=== PATIENT | male | born 1960 | race Caucasian/White ===

== ENCOUNTER 2019-02-02 21:12 | Inpatient (IN) | payer OTHER ==
[~2019-02-02] VITALS: Ht 177.8 cm; Wt 60.3 kg
[2019-02-02 21:12] VITALS: BP 120/67
--- NOTE | 2019-02-02 21:12 | NUR ---
PT LAUREEN GARRISON TO ER BED 2
--- NOTE | 2019-02-02 21:12 | NUR ---
PATIENT BIB EMS TO ER BED 2.
--- NOTE | 2019-02-02 21:20 | NUR ---
58 YO M BIBA-ALS FROM [facility] FOR ABNORMAL LABS (WBC: 18.1). NO OTHER CHEIF COMPLAINTS REPORTED. PT ARRIVED VIA GURNEY WITH TRACH. MANUAL VENTILATION VIA BVM IN PROGRESS. PT TRANSPORTED TO BED WITH RT AT BEDSIDE. PT CONNECTED TO VENTILATOR. PT IS AWAKE, RESPONDS TO NAME, NON-VERBAL, NON-AMBULATORY. BEAN CATHETER IN PLACE, DRAINING YELLOW, CLOUDY URINE. G-TUBE NOTED. PT HAS STAGE 4 PRESSURE WOUND TO COCCYX. -- SKIN PINK, DRY, WARM. BREATHING EVEN, UNLABORED. BILATERAL RONCHI AND RALES AUSCULTATED. -- VSS. NO DISTRESS NOTED AT THIS TIME. PMH-- ADVANCED ALS, VENT/G-TUBE DEPENDENT, CHRONIC RESPIRATORY FAILURE, DM, HTN, GERD
--- NOTE | 2019-02-02 21:25 | NUR ---
# 18 FR Eaton catheter with 10 ml utilizing sterile technique. Immediate return of 15 ml cloudy, yellow urine noted. Bedside drainage bag placed below level of bladder. Urine sample collected and sent to lab. Pt tolerated procedure well.
--- NOTE | 2019-02-02 21:30 | NUR ---
SP02 DROPPING TO 92%. TRACHEAL SUCTION PERFORMED. LARGE, YELLOW, SEMI THICK SECRETIONS NOTED. SP02 INCREASED TO 97%.
[2019-02-02] MEDS ORDERED: CHLO1SOL3 MM (21:42)
[2019-02-02] MEDS ORDERED: BACL10TA4 GT (21:42)
[2019-02-02] MEDS ORDERED: [UNRECOGNIZED DRUG - CODE] SQ (21:42)
[2019-02-02] MEDS ORDERED: AMLO10TA GT (21:42)
[2019-02-02] MEDS ORDERED: LIDO5TDM45 TP (21:42)
[2019-02-02] MEDS ORDERED: FAMO-90 GT (21:42)
[2019-02-02] MEDS ORDERED: LID5T TP (21:42)
[2019-02-02] MEDS ORDERED: MULT9LIQ3 GT (21:42)
[2019-02-02] MEDS ORDERED: NUTR887L9 GT (21:42)
[2019-02-02] MEDS ORDERED: POLY15SO48 OP (21:42)
[2019-02-02] MEDS ORDERED: NACL 0.9% 1,000 ML IV ONE (22:09)
[2019-02-02] MEDS ORDERED: MEROPENEM 1,000 MG in NACL 0.9% 100 ML IV ONE (22:10)
[2019-02-02] MEDS ORDERED: VANCOMYCIN 1,000 MG in DEXTROSE 5% 250 ML IV ONE (22:10)
--- NOTE | 2019-02-02 22:10 | NUR ---
RT AT BEDSIDE COLLECTING SPUTUM SPECIMEN.
[2019-02-02 22:32] LABS: BASOPHILS # (AUTO) 0.1 K/uL (0.00-0.22); BASOPHILS % (AUTO) 0.4 % (0.0-2.0); EOSINOPHILS # (AUTO) 0.2 K/uL (0-0.4); EOSINOPHILS % (AUTO) 1.1 % (0.0-4.0); HEMATOCRIT 33.3 % (36-52); HEMOGLOBIN 10.8 g/dL (12.0-18.0); LYMPHOCYTES # (AUTO) 2.5 K/uL (2.0-11.5); LYMPHOCYTES % (AUTO) 13.7 % (20.5-51.1); MEAN CORPUSCULAR HEMOGLOBIN 28 pg (27-31); MEAN CORPUSCULAR HGB CONC 32 g/dL (33-37); MEAN CORPUSCULAR VOLUME 86.8 fL (80-94); MONOCYTES # (AUTO) 1.1 K/uL (0.8-1.0); MONOCYTES % (AUTO) 5.9 % (1.7-9.3); NEUTROPHILS # (AUTO) 14.1 K/uL (1.8-7.7); PLATELET COUNT (AUTO) 452 K/uL (140-450); RED BLOOD CELL COUNT(AUTO) 3.84 MIL/uL (4.20-6.10); RED CELL DISTRIBUTION WIDTH 16.2 % (11.6-13.7); WHITE BLOOD COUNT (AUTO) 17.9 K/uL (4.8-10.8)
--- NOTE | 2019-02-02 22:38 | NUR ---
EMT PERFORMING EKG AT BEDSIDE.
--- NOTE | 2019-02-02 22:40 | NUR ---
Han fofana in ED - 02/03/19 at 0303 by [facility] EMT PERFORMING EKG AT BEDSIDE.
--- NOTE | 2019-02-02 22:40 | NUR ---
LAB AT BEDSIDE FOR 2ND BLOOD CX.
[2019-02-02] MEDS ORDERED: MEROPENEM 1,000 MG VIAL IV ONE (22:42)
[2019-02-02] MEDS ORDERED: VANCOMYCIN 1,000 MG VIAL ONE (22:42)
[2019-02-02 22:48] LABS: NEUTROPHILS % (AUTO) 78.9 % (42.2-75.2)
[2019-02-02 22:57] LABS: ANION GAP 8.7 (8-16); CARBON DIOXIDE 30.8 mmol/L (21-32); CREATININE 0.2 mg/dL (0.7-1.3); POTASSIUM 3.5 mmol/L (3.5-5.1)
[2019-02-02 23:02] LABS: PROTHROMBIN TIME 10.2 secs (10.8-13.4)
[2019-02-02 23:09] VITALS: BP 140/74
[2019-02-02 23:14] LABS: TOTAL BILIRUBIN 0.6 mg/dL (0.0-1.0)
[2019-02-02 23:15] LABS: ALBUMIN 2.4 g/dL (3.4-5.0)
--- NOTE | 2019-02-02 23:46 | NUR ---
PT IS SLEEPING COMFORTABLY. VSS. TRACH IS MIDLINE, CONNECTED TO VENT. SKIN PINK, WARM, DRY. BREATHING EVEN/UNLABORED.
[2019-02-02 23:50] LABS: APPEARANCE,URINE HAZY (CLEAR); BILIRUBIN,URINE NEGATIVE (NEGATIVE); BLOOD, URINE 3+ (NEGATIVE); COLOR,URINE YELLOW (YELLOW); LEUKOCYTE ESTERASE ,URINE 3+ (NEGATIVE); NITRITE, URINE POSITIVE (NEGATIVE); PH,URINE 6.5 (5.0-9.0); UGLUCOSE NEGATIVE (NEGATIVE)
[2019-02-03 00:04] LABS: RBC,URINE 20-50 /HPF (0-5); WBC,URINE 60-80 /HPF (0-5)
--- NOTE | 2019-02-03 00:50 | NUR ---
PT IS SLEEPING COMFORTABLY. VSS. TRACH IS MIDLINE, CONNECTED TO VENT. SKIN PINK, WARM, DRY. BREATHING EVEN/UNLABORED.
--- NOTE | 2019-02-03 01:30 | NUR ---
PT IS SLEEPING COMFORTABLY. VSS. TRACH IS MIDLINE, CONNECTED TO VENT. SKIN PINK, WARM, DRY. BREATHING EVEN/UNLABORED. AWAITING BED FOR ADMISSION.
[2019-02-03] MEDS ORDERED: ONDANSETRON 4 MG/2 ML VIAL IM/IVP PRN (01:45)
[2019-02-03] MEDS ORDERED: VANCOMYCIN PER PHARMACY MC PRN (01:45)
[2019-02-03] MEDS ORDERED: ZOLPIDEM 5 MG TAB PO PRN (01:45)
[2019-02-03] MEDS ORDERED: ACETAMINOPHEN 325 MG TAB PO PRN (01:45)
[2019-02-03] MEDS ORDERED: DOCUSATE SODIUM 100 MG GELCAP PO PRN (01:45)
[2019-02-03] MEDS ORDERED: HYDROcodone/APAP 5/325 MG 1 TAB TAB PO PRN (01:45)
[2019-02-03] MEDS ORDERED: LORazepam 2 MG/ML VIAL IM/IVP PRN (01:45)
[2019-02-03 02:29] LABS: MAGNESIUM 2.3 mg/dL (1.8-2.4); PHOSPHORUS 4.2 mg/dL (2.5-4.9); THYROID STIMULATING HORMONE 1.78 uIU/mL (0.34-3.74)
[2019-02-03 02:30] VITALS: BP 146/71
--- NOTE | 2019-02-03 02:30 | NUR ---
RECEIVED PATIENT FROM ER, PATIENT ON VENTILATOR, VS 450, RR 10, PEEP 5, FIO2 32%, SPO2 97%. PATIENT HAS WOUND TO SACRAL REGION, PATIENT IS DIAPHORETIC BUT AFEBRILE. PLACED PATIENT ONTO BED WITH SAFETY PRECAUTIONS IN PLACE.
--- NOTE | 2019-02-03 02:30 | NUR ---
Patient will be admitted to care of Dr. Vallejo. Admited to TELE. Will go to room 108B. Belongings list completed. Report to ESTELLE Inman.
[2019-02-03] MEDS ORDERED: INSULIN LISPRO SLIDING SCALE 100 UNITS/ML VIAL SUBQ PRN (02:45)
[2019-02-03] MEDS ORDERED: DEXTROSE 50% 50 ML SYR IVP PRN (02:45)
[2019-02-03] MEDS: NACL 0.9% 1,000 ML IV SCH ×2 (03:02→17:36)
[2019-02-03] MEDS: MORPHINE SULFATE 2 MG/ML SYR IVP PRN (03:02)
--- NOTE | 2019-02-03 03:03 | NUR ---
PATIENT SEEMS TO BE IN PAIN. ASKED PATIENT IF HE IS IN PAIN AND HE NODDED YES. MEDICATED WITH PRN PAIN MEDICATION. WILL CONTINUE TO MONITOR.
[2019-02-03] MEDS ORDERED: BACL10TA4 GT (03:13)
[2019-02-03] MEDS ORDERED: ASCO-672 GT (03:34)
[2019-02-03] MEDS ORDERED: BACLOFEN 10 MG TAB GT SCH ×2 (05:00)
[2019-02-03] MEDS ORDERED: PIPERACILLIN/TAZOBACTAM 3.375 GM in DEXTROSE 5% 50 ML IV SCH (05:00)
[2019-02-03] MEDS: BACLOFEN 10 MG TAB GT SCH ×3 (05:11→20:35)
[2019-02-03] MEDS ORDERED: PIPERACILLIN/TAZOBACTAM 3.375 GM VIAL IV ONE (05:23)
--- NOTE | 2019-02-03 05:25 | NUR ---
OBTAINED WOULD CULTURE ORDERED, PATIENT SEEMS DISTRESS AND ANXIOUS. ADMINISTERED PRN ATIVAN.
[2019-02-03] MEDS ORDERED: VANCOMYCIN 1,250 MG in NACL 0.9% 250 ML IV SCH (06:00)
[2019-02-03] MEDS: ALBUTEROL SULFATE/IPRATROPIU 3 ML SOL IH SCH ×3 (06:48→19:22)
--- NOTE | 2019-02-03 06:48 | NUR ---
REC'D PT ON CARESCAPE VENT SETTINGS AC 10 VT450 PEEP 5 FIO2 32% ALARMS ON AND AUDIBLE AND AMBU BAG AT SIDE OF VENT AND VENT IS PLUGGED INTO RED OUTLET, I\L TX GIVEN WITH DUONEB 3ML WITH NO ADVERSE REACTION POST TX B\S ARE RHONCHI BILATERALLY SXN PT LARGE AMT OF THICK YELLOW SECRETIONS, PT IS TRACH WITH PORTEX 8 AND SKIN INTEGRITY IS INTACT, PT IS SLEEPING WITH NO SIGNS OF DISTRESS NOTED AT THIS TIME
[2019-02-03] MEDS ORDERED: VANCOMYCIN 1,000 MG VIAL ONE (07:09)
[2019-02-03] MEDS: BLOOD GLUCOSE MONITORING 1 DEV DEV FS SCH ×4 (07:30→20:15)
--- NOTE | 2019-02-03 07:40 | NUR ---
GAVE BEDSIDE REPORT TO DAY SHIFT RN. ENDORSED PATIENT IN STABLE CONDITION. PATIENT ON VENTILATOR AND SPO2 IS 97%.
[2019-02-03 08:00] VITALS: BP 125/71
--- NOTE | 2019-02-03 08:12 | NUR ---
RECEIVED REPORT FROM SUSIE SUPERINTENDENT RN. PT ON TRACH TO VENT. AAOX3-4, IV TO THE RIGHT FA 22G INFUSING NS AT 100ML/HR. PER PM SUPERINTENDENT, VANCO WAS NOT GIVEN DUE TO PT GETTING ULTRASOUND. WILL HANG VANCO PER MD ORDERS. PT HAS SACRAL PRESSURE ULCER, SKIN TEAR TO LEFT FA AND RIGHT LOWER LEG. PT BED IN LOW POSITION, CALL LIGHT WITHIN REACH. WILL ROUND FREQUENTLY ON PT.
[2019-02-03] MEDS ORDERED: LIDOCAINE 5% 1 EA PATCH TP SCH ×2 (09:00)
[2019-02-03 09:44] LABS: BASOPHILS % (AUTO) 0.4 % (0.0-2.0); EOSINOPHILS # (AUTO) 0.2 K/uL (0-0.4); EOSINOPHILS % (AUTO) 1.5 % (0.0-4.0); HEMATOCRIT 28.1 % (36-52); HEMOGLOBIN 9.1 g/dL (12.0-18.0); LYMPHOCYTES # (AUTO) 1.7 K/uL (2.0-11.5); LYMPHOCYTES % (AUTO) 13.3 % (20.5-51.1); MEAN CORPUSCULAR HEMOGLOBIN 29 pg (27-31); MEAN CORPUSCULAR HGB CONC 32 g/dL (33-37); MEAN CORPUSCULAR VOLUME 87.9 fL (80-94); MONOCYTES # (AUTO) 0.7 K/uL (0.8-1.0); MONOCYTES % (AUTO) 5.8 % (1.7-9.3); NEUTROPHILS # (AUTO) 10.1 K/uL (1.8-7.7); PLATELET COUNT (AUTO) 348 K/uL (140-450); RED BLOOD CELL COUNT(AUTO) 3.19 MIL/uL (4.20-6.10); WHITE BLOOD COUNT (AUTO) 12.8 K/uL (4.8-10.8)
[2019-02-03 10:00] LABS: ANION GAP 10.6 (8-16); CARBON DIOXIDE 27.9 mmol/L (21-32); CREATININE 0.2 mg/dL (0.7-1.3); POTASSIUM 3.5 mmol/L (3.5-5.1)
[2019-02-03 10:04] LABS: CHOL/HDL RATIO 3.1 (1-4.5)
--- NOTE | 2019-02-03 10:12 | NUR ---
ADMINISTERED MORNING MEDS TO PT. PT TOLERATED WELL. PER PHARMACY, VANCO LEFT BY OFFICE ASSOCIATE WAS TO BE WASTED AND A NEW VANCO WAS SENT DOWN TO ME. VANCO INFUSING NOW. PT IN STABLE CONDITION. WILL ROUND FREQUENTLY.
[2019-02-03] MEDS: MULTIVITAMIN/MINERALS 15 ML UDBTL GT SCH (10:16)
[2019-02-03] MEDS: ASCORBIC ACID 500 MG/5 ML ORASYR GT SCH (10:16)
[2019-02-03] MEDS: FAMOTIDINE 20 MG TAB GT SCH ×2 (10:17→20:35)
[2019-02-03] MEDS: amLODIPine 5 MG TAB GT SCH (10:17)
[2019-02-03] MEDS: VANCOMYCIN 1,250 MG in DEXTROSE 5% 250 ML IV SCH ×2 (10:24→17:36)
[2019-02-03] MEDS: POLYVINYL ALCOHOL 1.4% OP 15 ML SOL OP SCH ×3 (11:54→17:36)
[2019-02-03 11:57] VITALS: BP 125/71
--- NOTE | 2019-02-03 12:47 | NUR ---
PT ASLEEP IN BED. NO SIGNS OF DISTRESS NOTED. VITAL SIGNS STABLE. O2 SAT AT 98%. RR AT 14. WILL ROUND FREQUENTLY ON PT.
[2019-02-03] MEDS: PIPER/TAZO 3.375GM/D5W PREMIX 50 ML IV SCH ×2 (13:50→20:35)
--- NOTE | 2019-02-03 14:32 | NUR ---
PT RESTING IN BED. PT DENIES PAIN OR SOB. BED IN LOW POSITION, CALL LIGHT WITHIN REACH. WILL ROUND FREQUENTLY ON PT.
--- NOTE | 2019-02-03 15:00 | NUR ---
CALLED TO PTS ROOM FOR PT DESAT TO 47% PT HAD LABORED BREATHING B\S ARE RHONCHI BILATERALLY, SXN PT FROM TRACH SMALL AMT OF YELLOW SECRETIONS RN SOPHIA SXN PT ORALLY, INCREASED FIO2 TO 100% AND O2 SAT WENT UP TO 100% DECREASED FIO2 TO 80% AND WILL CONTINUE TO MONITOR PT
--- NOTE | 2019-02-03 15:04 | NUR ---
PT VENTILATOR WAS BEEPING SO I WENT AND CHECKED ON PT. PT O2 SAT WAS IN THE 30-40'S. CALLED RT AND MD TO ASSIST WITH PT. PT O2 BROUGHT BACK TO 98-100%. PT NOW RESTING IN BED WITH NO SIGNS OF DISTRESS. WILL CONTINUE TO MONITOR PT CLOSELY.
[2019-02-03 16:00] VITALS: BP 114/59
--- NOTE | 2019-02-03 17:17 | NUR ---
PT RESTING IN BED. NO SIGNS OF PAIN OR DISTRESS NOTED. WILL CONTINUE OT ROUND ON PT.
--- NOTE | 2019-02-03 19:31 | NUR ---
Received pt stable on vent support at documented settings, suctioned small amount of white thick secretions, hhn tx given, tolerated well, no resp distress or SOB noted at this time, Portex 8 trach secured/patent/midline, alarms set and audible, ambu bag at bedside, vent plugged into red outlet, cont pulse ox on, will cont to monitor.
--- NOTE | 2019-02-03 19:44 | NUR ---
ENDORSED PT TO EMERGENCY MEDCL EMT FOR CONTINUITY OF CARE. PT IN STABLE CONDITION AT THIS TIME.
--- NOTE | 2019-02-03 19:45 | NUR ---
RECEIVED REPORT FROM TYSHAWN MCCABE. PT ON TRACH TO VENT. AC/VC: 60/450/RR 10/35/PEEP 5. AAOX1. PT APHASIC ABLE TO NOD HEAD. IV TO THE RIGHT FA 22G INFUSING NS AT 60ML/HR. PT HAS SACRAL PRESSURE ULCER, SKIN TEAR TO LEFT FA AND RIGHT LOWER LEG. PT BED IN LOW POSITION, HOB ELEVATED 45. PT ON CONTACT PRECAUTION FOR HX OF MRSA. CALL LIGHT WITHIN REACH. WILL ROUND FREQUENTLY ON PT.
[2019-02-03 20:00] VITALS: BP 134/72
--- NOTE | 2019-02-03 20:35 | NUR ---
VITAL SIGNS ARE WITHIN NORMAL LIMITS: 134/72, HR 89, 98% TRACH TO VENT. 97.4 PERFORMED ORAL CARE AND SUCTION SMALL AMOUNT THICK WHITE SECRETION. PT WITH NO RESIDUAL. SCHEDULED MEDICATIONS GIVEN. PT TOLERATED WELL. FEEDING BEGAN BY ORDERS GLUCERNA 10/H AND INCREASE 10ML/QH GOAL 65. WATER FLUSH 150ML/Q4, WILL CONTINUE TO MONITOR. SAFETY MEASURES ARE IN PLACE.
--- NOTE | 2019-02-03 22:00 | NUR ---
PATIENT IS RESTING COMFORTABLY IN BED. NO S/S OF DISTRESS. RT BROUGHT FIO2 DOWN TO 60. WILL CONTINUE TO MONITOR PATIENT.
[2019-02-04] VITALS: BP 148/72
--- NOTE | 2019-02-04 | NUR ---
VITAL SIGNS ARE WITHIN NORMAL LIMITS. EYE DROPS ADMINISTERED PER ORDERS. SUCTION SMALL AMOUNT OF THICK WHITE SECRETIONS. PATIENT TOLERATED WELL. WILL CONTINUE TO MONITOR.
[2019-02-04] MEDS: VANCOMYCIN 1,250 MG in DEXTROSE 5% 250 ML IV SCH ×2 (00:40→23:21)
--- NOTE | 2019-02-04 02:00 | NUR ---
PATIENT WITH 10 RESIDUAL. FEEDING INCREASED TO 30ML/H AND WATER FLUSH 150ML/Q4. SUCTION SMALL AMOUNT OF THICK WHITE SECRETION. WILL CONTINUE TO MONITOR.
[2019-02-04 04:00] VITALS: BP 145/77
[2019-02-04] MEDS: PIPER/TAZO 3.375GM/D5W PREMIX 50 ML IV SCH ×3 (04:01→21:40)
[2019-02-04] MEDS: BACLOFEN 10 MG TAB GT SCH ×3 (04:01→21:50)
[2019-02-04] MEDS: ALBUTEROL SULFATE/IPRATROPIU 3 ML SOL IH PRN (04:31)
--- NOTE | 2019-02-04 04:33 | NUR ---
VITAL SIGNS ARE WITHIN NORMAL LIMITS. SCHEDULED MEDICATIONS GIVEN. RT IS AT BEDSIDE. SAFETY MEASURES ARE IN PLACE. WILL CONTINUE TO MONITOR.
[2019-02-04] MEDS: POLYVINYL ALCOHOL 1.4% OP 15 ML SOL OP SCH ×5 (05:08→23:23)
[2019-02-04] MEDS: BLOOD GLUCOSE MONITORING 1 DEV DEV FS SCH ×4 (05:08→21:58)
--- NOTE | 2019-02-04 06:24 | NUR ---
RECEIVED PT ON CARESCAPE ON DOCUMENTED SETTINGS, ALARMS ARE ON AND AUDIBLE, PT IN HF ASLEEP, PTS TRACH PORTEX 8 IS SECURE, BS CLEAR HHN GIVEN I\L WITH 3 MG DUONEB NO SOB NOTED, VENT PLUGGED INTO RED OUTLET, BMV HOB, CONT. POX IN PLACE
[2019-02-04] MEDS: ALBUTEROL SULFATE/IPRATROPIU 3 ML SOL IH SCH ×3 (06:26→20:01)
--- NOTE | 2019-02-04 07:14 | NUR ---
RECEIVED REPORT FROM ELECTRONIC SCALE SUBASSEMBLER RN. PT ON TRACH TO VENT. AAOX3-4, IV TO THE RIGHT FA 22G INFUSING NS AT 60ML/HR. PT HAS SACRAL PRESSURE ULCER, SKIN TEAR TO LEFT FA AND RIGHT LOWER LEG. PT IS TRACH TO VENT, O2 SAT AT 98% ON FIO2 OF 38%. PT IN STABLE CONDITION WITH NO SIGNS OF PAIN OR SOB. PT BED IN LOW POSITION, CALL LIGHT WITHIN REACH. WILL ROUND FREQUENTLY ON PT.
--- NOTE | 2019-02-04 07:27 | NUR ---
GAVE BEDSIDE REPORT TO TYSHAWN. PT ENDORSED IN STABLE CONDITION.
[2019-02-04 08:00] VITALS: BP 114/66
[2019-02-04 08:58] LABS: BASOPHILS # (AUTO) 0.1 K/uL (0.00-0.22); BASOPHILS % (AUTO) 0.6 % (0.0-2.0); EOSINOPHILS # (AUTO) 0.2 K/uL (0-0.4); EOSINOPHILS % (AUTO) 1.5 % (0.0-4.0); HEMATOCRIT 30.4 % (36-52); HEMOGLOBIN 9.9 g/dL (12.0-18.0); LYMPHOCYTES % (AUTO) 15.7 % (20.5-51.1); MEAN CORPUSCULAR HEMOGLOBIN 28 pg (27-31); MEAN CORPUSCULAR HGB CONC 33 g/dL (33-37); MONOCYTES # (AUTO) 0.7 K/uL (0.8-1.0); MONOCYTES % (AUTO) 5.9 % (1.7-9.3); NEUTROPHILS # (AUTO) 9.6 K/uL (1.8-7.7); NEUTROPHILS % (AUTO) 76.3 % (42.2-75.2); PLATELET COUNT (AUTO) 376 K/uL (140-450); RED CELL DISTRIBUTION WIDTH 16.2 % (11.6-13.7); WHITE BLOOD COUNT (AUTO) 12.5 K/uL (4.8-10.8)
[2019-02-04 09:09] LABS: ANION GAP 13.3 (8-16); CREATININE 0.3 mg/dL (0.7-1.3); POTASSIUM 3.3 mmol/L (3.5-5.1)
[2019-02-04 09:09] LABS: T4 (THYROXINE) 7.2 ug/dL (4.5-12.0)
[2019-02-04 09:40] LABS: MAGNESIUM 2.2 mg/dL (1.8-2.4)
[2019-02-04 09:41] LABS: PHOSPHORUS 3.2 mg/dL (2.5-4.9)
--- NOTE | 2019-02-04 09:51 | NUR ---
02/04/19 RD INITIAL ASSESSMENT COMPLETED PLEASE REFER TO NUTRITION ASSESSMENT UNDER CARE ACTIVITY FOR ESTIMATED NUTRITIONAL NEEDS. RD RECOMMENDATIONS: 1. CONTINE ENTERAL FEEDING OF GLUCERNA 1.2 AT 65 ML/HR TOLERATED. 2. RD WILL F/U 2-3 DAYS; HIGH RISK. DEE [place], MS, RDN
--- NOTE | 2019-02-04 10:02 | NUR ---
ADMINISTERED MORNING MEDS TO PT. PT TOLERATED THEM WELL. RESIDUAL WAS CHECKED PRIOR TO MED ADMINISTRATION. 20ML RESIDUAL NOTED. G-TUBE FLUSHING WELL. FEEDING TURNED BACK ON AFTER MED ADMINISTRATION. ALSO ADMINISTERED PAIN MEDICATION DUE TO PT ACKNOWLEDGING THAT HE WAS EXPERIENCING A LOT OF PAIN. PT VITAL SIGNS ARE STABLE. NO SOB NOTED. O2 SAT IS 98%. BED IN LOW POSITION, CALL LIGHT WITHIN REACH. WILL CONTINUE TO ROUND ON PT.
[2019-02-04] MEDS: MULTIVITAMIN/MINERALS 15 ML UDBTL GT SCH (10:09)
[2019-02-04] MEDS: FAMOTIDINE 20 MG TAB GT SCH ×2 (10:09→21:49)
[2019-02-04] MEDS: ASCORBIC ACID 500 MG/5 ML ORASYR GT SCH (10:09)
[2019-02-04] MEDS: amLODIPine 5 MG TAB GT SCH (10:09)
[2019-02-04] MEDS: MORPHINE SULFATE 2 MG/ML SYR IVP PRN ×2 (10:11→21:59)
[2019-02-04] MEDS: NACL 0.9% 1,000 ML IV SCH (11:05)
[2019-02-04 12:00] VITALS: BP 130/76
--- NOTE | 2019-02-04 12:41 | NUR ---
PT ASLEEP IN BED. NO SIGNS OF PAIN OR SOB. O2 SAT IS 99% AT THIS TIME AT FIO2 OF 38%. ALL OTHER NEEDS MET. WILL CONTINUE TO CHECK PT FREQUENTLY.
--- NOTE | 2019-02-04 14:53 | NUR ---
PT RESTING IN BED. NO SIGNS OF DISTRESS OR PAIN. O2 SAT IS 98%. BED IN LOW POSITION, CALL LIGHT WITHIN REACH.
[2019-02-04] MEDS ORDERED: BISACODYL 10 MG SUPP RC SCH (15:33)
[2019-02-04 16:00] VITALS: BP 111/65
--- NOTE | 2019-02-04 16:47 | NUR ---
PT RESTING IN BED. NO SIGNS OF DISTRESS NOTED. WILL ROUND FREQUENTLY ON PT.
[2019-02-04] MEDS: ACETYLCYSTEINE 10% (100 MG/ML) 100 MG/ML VIAL INH SCH (19:00)
--- NOTE | 2019-02-04 19:38 | NUR ---
ENDORSED PT TO TUMBLERS SUPERVISOR FOR CONTINUITY OF CARE. PT IN STABLE CONDITION AT THIS TIME.
--- NOTE | 2019-02-04 19:38 | NUR ---
RECEIVED PATIENT REPORT AT BEDSIDE. PATIENT IS TRACH TO VENT WITH SETTINGS: FIO2 100% VT 450, FLOW RATE 45 L/MIN, PEEP OF 5. O2 SAT 100% AT THIS TIME. PATIENT IS AWAKE AND ALERT BUT UNABLE TO VERBALIZE NEEDS. BEAN CATH IN PLACE DRAINING CLEAR YELLOW URINE. G-TUBE IN PLACE WITH FEEDING RUNNING. BED LOWERED WITH CALL LIGHT WITHIN REACH. WILL CONTINUE TO MONITOR
[2019-02-04 20:00] VITALS: BP 126/76
--- NOTE | 2019-02-04 20:00 | NUR ---
ORAL CARE GIVEN
[2019-02-04] MEDS ORDERED: DOCUSATE SODIUM 100 MG GELCAP PO SCH (21:00)
--- NOTE | 2019-02-04 21:50 | NUR ---
SCHEDULED PO MEDS ADMINISTERED VIA G-TUBE. 100ML RESIDUALS NOTED.
--- NOTE | 2019-02-04 23:00 | NUR ---
PATIENT HAD BM. STOOL SOFT AND MODERATED IN AMOUNT. STOOL OB COLLECTED AND SENT TO THE LAB. PATIENT CLEANED AND REPOSITIONED FOR COMFORT. PT TOLERATED WELL
[2019-02-05] VITALS: BP 133/80
[2019-02-05] MEDS: NACL 0.9% 1,000 ML IV SCH ×2 (03:45→21:09)
[2019-02-05 04:00] VITALS: BP 117/63
[2019-02-05] MEDS ORDERED: POTASSIUM CHLORIDE 20% 40 MEQ/15 ML UDC GT SCH (04:00)
[2019-02-05] MEDS: PIPER/TAZO 3.375GM/D5W PREMIX 50 ML IV SCH ×3 (04:40→20:26)
[2019-02-05] MEDS: BACLOFEN 10 MG TAB GT SCH ×3 (04:41→20:25)
[2019-02-05] MEDS: POLYVINYL ALCOHOL 1.4% OP 15 ML SOL OP SCH ×4 (06:07→23:21)
[2019-02-05] MEDS: BLOOD GLUCOSE MONITORING 1 DEV DEV FS SCH ×4 (06:09→20:33)
[2019-02-05] MEDS: ALBUTEROL SULFATE/IPRATROPIU 3 ML SOL IH SCH ×3 (06:45→19:25)
[2019-02-05] MEDS: ACETYLCYSTEINE 10% (100 MG/ML) 100 MG/ML VIAL INH SCH ×2 (06:46→19:25)
--- NOTE | 2019-02-05 06:46 | NUR ---
RECEIVED PT ON DOCUMENTED SETTINGS, ON CARESCAPE VENT. ALARMS ARE ON AND AUDIBLE, PTS TRACH PORTEX 8 IS SECURE PT IN HF QUIET BS COARSE SX COPIOUS CREAMY SECRETIONS ,HHN GIVEN I\L WITH 3 MG DUONEB, CPT BILATERALLY BMV HOB VENT PLUGGED INTO RED OUTLET, CONT. POX IN PLACE DECREASED FIO2 TO 80
--- NOTE | 2019-02-05 07:20 | NUR ---
PT REPORT GIVEN AT BEDSIDE. PATIENT ENDORSED IN STABLE CONDITION
--- NOTE | 2019-02-05 07:21 | NUR ---
RECEIVED ENDORSEMENT FROM POLICY SPECIALIST NURSE. PT IS AAOX2. PT IS ON TRACH TO VENT. F/C INTACT AND DRAINING DARK YELLOW URINE. RIGHT FA 20 G INTACT, PATENT AND INFUSING IVF. G-TUBE INTACT,PATENT, AND INFUSING CONTINUOS FEEDING. PT IS CONTRACTED IN THE UPPER AND LOWER EXTREMITIES BILAT. PLAN OF CARE WAS REVIEWED WITH PATIENT. PT UNABLE TO VERBALIZE UNDERSTANDING. SAFETY MEASURES IN PLACE, CALL LIGHT IS WITHIN REACH. WILL CONTINUE TO MONITOR. Addendum: 02/05/19 at 0810 by Mandy Stroud RN FLACC 0
[2019-02-05 08:00] VITALS: BP 108/69
[2019-02-05 08:31] LABS: ANION GAP 8.3 (8-16); CARBON DIOXIDE 31.6 mmol/L (21-32); POTASSIUM 4.9 mmol/L (3.5-5.1)
[2019-02-05 08:41] LABS: PHOSPHORUS 3.2 mg/dL (2.5-4.9)
[2019-02-05 08:45] LABS: CREATININE 0.3 mg/dL (0.7-1.3)
[2019-02-05 08:48] LABS: BASOPHILS # (AUTO) 0.1 K/uL (0.00-0.22); BASOPHILS % (AUTO) 0.6 % (0.0-2.0); EOSINOPHILS # (AUTO) 0.2 K/uL (0-0.4); EOSINOPHILS % (AUTO) 1.2 % (0.0-4.0); HEMOGLOBIN 9.4 g/dL (12.0-18.0); LYMPHOCYTES # (AUTO) 1.6 K/uL (2.0-11.5); LYMPHOCYTES % (AUTO) 8.6 % (20.5-51.1); MEAN CORPUSCULAR HEMOGLOBIN 28 pg (27-31); MEAN CORPUSCULAR HGB CONC 32 g/dL (33-37); MEAN CORPUSCULAR VOLUME 87.2 fL (80-94); MONOCYTES # (AUTO) 0.9 K/uL (0.8-1.0); MONOCYTES % (AUTO) 4.8 % (1.7-9.3); NEUTROPHILS # (AUTO) 15.7 K/uL (1.8-7.7); NEUTROPHILS % (AUTO) 84.8 % (42.2-75.2); PLATELET COUNT (AUTO) 405 K/uL (140-450); RED BLOOD CELL COUNT(AUTO) 3.32 MIL/uL (4.20-6.10); RED CELL DISTRIBUTION WIDTH 15.8 % (11.6-13.7); WHITE BLOOD COUNT (AUTO) 18.5 K/uL (4.8-10.8)
--- NOTE | 2019-02-05 08:52 | NUR ---
DECREASED FIO2 TO 70 SPO2 98
--- NOTE | 2019-02-05 09:50 | NUR ---
ADMINISTERED SCHEDULED MEDIATIONS. PT IS NONVERBAL. FLACC 0. SUCTIONED TRACH AND MOUTH. RESPIRATIONS EVEN AND UNLABORED. REPOSITIONED AND CHANGED. WILL CONTINUE TO MONITOR.
[2019-02-05] MEDS: MULTIVITAMIN/MINERALS 15 ML UDBTL GT SCH (09:52)
[2019-02-05] MEDS ORDERED: DOCUSATE 100 MG/10 ML UDC GT SCH (09:53)
[2019-02-05] MEDS: ASCORBIC ACID 500 MG/5 ML ORASYR GT SCH (09:53)
[2019-02-05] MEDS: FAMOTIDINE 20 MG TAB GT SCH ×2 (10:01→20:25)
[2019-02-05] MEDS: amLODIPine 5 MG TAB GT SCH (10:01)
[2019-02-05] MEDS: VANCOMYCIN 1,250 MG in DEXTROSE 5% 250 ML IV SCH ×2 (10:02→21:05)
--- NOTE | 2019-02-05 11:50 | NUR ---
SUCTIONED PT ORAL AND TRACH. AFTER O2 SAT NOT IMPROVING, CALLED RT. RT SUCTIONED AND PROVIDED O2 VIA ABU BAG. O2 SAT IMPROVED. WILL CONTINUE TO MONITOR.
--- NOTE | 2019-02-05 11:55 | NUR ---
CALLED TO ROOM PT DESAT BAGGED PT SX WITH 14 FR CATHETER, IRETURNED TO VENT 1207 INCREASED FIO2 TO 100 SPO2 98
[2019-02-05 12:00] VITALS: BP 110/69
--- NOTE | 2019-02-05 13:12 | NUR ---
ADMINISTERED SCHEDULED MEDICATIONS. G-TUBE HAD 5ML RESIDUAL. PT TOLERATING FEEDING WELL. FLACC 0. WILL CONTINUE TO MONITOR.
--- NOTE | 2019-02-05 13:20 | NUR ---
WOUND CARE EVALUATION PENDING, RT AT BED SIDE AND STATE PT. IS NOT STABLE AT THIS TIME FOR TURNING, PT MAY DESAT. PRIMARY RN NOTIFIED, WILL ASSESS LATER.
--- NOTE | 2019-02-05 13:40 | NUR ---
UNABLE TO OBTAIN ABG
[2019-02-05 16:00] VITALS: BP 118/72
--- NOTE | 2019-02-05 16:13 | NUR ---
CALLED PRIMARY DR FAIRCH[facility] OFFICE [phone] [place] [address] AND MADE F/U APPOINTMENT ON 02/08/19 AT 1130 AM . APPOINTMENT PAPER GIVEN TO PT , VERBALIZED UNDERSTANDING.
--- NOTE | 2019-02-05 16:33 | NUR ---
WOUND CARE EVALUATION NOTE: REASON FOR EVALUATION: LOW DIANE SCALE AND SACRAL WOUND SKIN ASSESSMENT DONE WITH PRIMARY RN, PT. STABLE IN RESPIRATORY, 02 SAT AT 98%. THIS 58 Y/O MALE PT ADMITTED FROM [facility] TO [facility] WITH INITIAL DX LEUKOCYTOSIS AND STAGE 4 PRESSURE ULCER. PAST MEDICAL HX INCLUDES HTN, DM,TRACH TO VENT, ALS, PAD AND G-TUBE. ALL ABOVE INFORMATION OBTAINED FROM ADMISSION H&P. PT SKIN IS WARM AND DRY, MULTIPLE DRY SCABS TO UPPER EXTREMITIES. BLE SKIN DRY, CAPILLARY REFILLED < 2 SEC. X 10 TOES. INCONTINENT OF BOWEL X1 DURING ASSESSMENT. PLAN OF CARE DISCUSSED WITH PRIMARY RN. INTEGUMENTARY: -TRACH SITE KAT STOMA SKIN DRY AND CLEAN. SKIN INTACT. - GT SITE KAT STOMA WITH SKIN INTACT. -MULTIPLE SKIN ALTERATIONS TO UPPER AND LOWER EXTREMITIES, CLOSED WOUND, PINK PIGMENTATION WITH LARGEST TO LATERAL LEFT LOWER LEG, MEASURED 5X2 CM, KAT WOUNDS SKIN INTACT. -INCONTINENT ASSOCIATE DERMATITIS (IAD) FROM PERINEUM TO SCROTAL AREAS, SKIN REDNESS - PRESSURE ULCER INJURY STAGE 4 TO SACRALCOCCYX, 3.5X2.5X1CM WITH UNDERMINING BETWEEN 7 O�CLOCK TO 3 O�CLOCK WITH DEPPEST TO 11 O�CLOCK AT 0.8CM, WOUND BED IS RED, 100% GRANULATING TISSUE, SMALL AMOUNT OF SEROUS DRAINAGE, NO ODOR, KAT WOUND SKIN INTACT. RECOMMENDATIONS: -CLEANSE IAD AREA FROM PERINEUM TO SCROTAL AREAS S WITH SOAP AND WATER, PAT DRY, APPLY HYDRAGUARD BID AND PRN IF SOILING AND COMBINATION OPERATOR -CLEANSE SACRALCOCCYX WITH WOUND CLEANSING SOLUTION AND APPLY THERAHONEY GEL TO WOUND BED, PACK WOUND WITH ADAPTIC DRESSING, COVER WITH DRY DRESSING QD AND PRN IF SOILING -APPLY VERSATEL DRESSING TO LLE LATERAL SIDE Q7 DAYS AND PRN IF SOILING -APPLY HEEL PROTECTORS TO LEFT AND RIGHT HEELS -OFFLOAD BILATERAL HEELS BY PLACING PILLOWS UNDER CALVES UNLESS OTHERWISE CONTRAINDICATED -PRESSURE REDISTRIBUTION SURFACE THERAPY -TURN AND REPOSITION Q2H, OFFLOAD SACRALCOCCYX AND BUTTOCKS BY TURNING RIGHT AND LEFT -CONTINUE TO FOLLOW RD RECOMMENDATIONS ALL ABOVE RECOMMENDATIONS DISCUSSED WITH PRIMARY RN. WILL FOLLOW UP PT Q7-10 DAYS. PLEASE CONTACT WOUND CARE NURSE FOR ANY QUESTION AND CHANGE OF WOUND CONDITION.
--- NOTE | 2019-02-05 17:30 | NUR ---
ADMINISTERED SCHEDULED MEDICATIONS. ORAL AND TRACH SUCTION PROVIDED. FLACC 0. WILL CONTINUE TO MONITOR.
--- NOTE | 2019-02-05 18:12 | NUR ---
RECEIVED CALL FROM LAB FROM EVIE THAT PT IS PRESUMPTIVE POSITIVE FOR MRSA IN THE WOUND.
--- NOTE | 2019-02-05 19:25 | NUR ---
ENDORSED TO CERTIFICATION OFFICER NURSE. PT IS STABLE.
--- NOTE | 2019-02-05 19:26 | NUR ---
RECEIVED PT AWAKE WITH TRACKING, APHASIC, VITAL SIGNS STABLE, SAT-100%, WITH TRACH TO VENT WITH YP80-643%, NO RESP DISTRESS NOTED, IVF INFUSING WELL, G-TUBE FEEDING ON-GOING, MAINTAINED HOB ELEVATED AT ALL TIMES, BEAN CATHETER TO GRAVITY WITH YELLOW URINE OUTPUT, MAINTAINED ON CONTACT ISOLATION, PT BEDBOUND, WILL REPOSITION Q2H AND OFFLOAD PRESSURE AREAS, SAFETY MEASURES IN PLACE, CALL LIGHT WITHIN REACH.
--- NOTE | 2019-02-05 19:38 | NUR ---
LOWERED FIO2 TO 80%. PATIENTS BREATH SOUNDS ARE CLEAR. NO SOB NOTED
[2019-02-05 20:00] VITALS: BP_SYST 94; BP_DIAS 68; BP_DIAS 88
[2019-02-05] MEDS: DOCUSATE 100 MG/10 ML UDC GT SCH (20:26)
--- NOTE | 2019-02-05 20:30 | NUR ---
BLOOD SUGAR CHECKED WITH 108 RESULT, NO COVERAGE NEEDED, 30ML G-TUBE RESIDUAL NOTED, DUE MEDS GIVEN VIA G-TUBE, DUE IV MEDS ADMINISTERED, ORAL CARE DONE USING VAP KIT, REPOSITIONED AND OFFLOAD PRESSURE AREAS, ALL NEEDS ANTICIPATED.
--- NOTE | 2019-02-05 23:16 | NUR ---
2305 LOWERED FIO2 TO 60%. SATS ARE 100% AT THIS TIME
--- NOTE | 2019-02-05 23:25 | NUR ---
PT OPEN EYES TO TOUCH, VITAL SIGNS STABLE, FLACC-0, SAT-98% ON 50% FI02, DUE MEDICATION ADMINISTERED, ORAL CARE DONE USING VAP KIT, REPOSITIONED Q2H AND OFFLOAD PRESSURE AREAS, CONTINUE TO MONITOR CLOSELY.
[2019-02-06] VITALS (7 sets, daily range): BP systolic 95–154; BP diastolic 56–88
[2019-02-06] MEDS: HYDRAGUARD CREAM TP SCH ×2 (01:06→12:19)
--- NOTE | 2019-02-06 01:24 | NUR ---
CPT DONE BILAT AND LOWERED FIO2 TO 40% SATS 94%
[2019-02-06] MEDS: ALBUTEROL SULFATE/IPRATROPIU 3 ML SOL IH PRN (03:33)
[2019-02-06] MEDS: MORPHINE SULFATE 2 MG/ML SYR IVP PRN (03:35)
--- NOTE | 2019-02-06 03:50 | NUR ---
PT TRANSFERRED TO [facility] BED, PT DESATURATED TO 81%, VENT ALARMING SHOWING HIGH PEAK FLOW, SUCTIONED PT X3 BUT PT STILL DESATURATING, RT MAXX PAGED AND CHECKED THE PT, FI02 INCREASED TO 100%, STILL PT DESATURATING, RT MAXX MANUALLY BAGGED THE PT, SAT WENT UP IN THE 90'S, RT GAVE BREATHING TX, RESUMED VENT TO 100% FI02, FLACC-5, VITAL SIGNS STABLE, MORPHINE IVP GIVEN, SAT-!00% AT THIS TIME, MONITORED CLOSELY.
[2019-02-06] MEDS: PIPER/TAZO 3.375GM/D5W PREMIX 50 ML IV SCH ×3 (04:16→20:56)
[2019-02-06] MEDS: BACLOFEN 10 MG TAB GT SCH ×3 (04:16→20:55)
[2019-02-06] MEDS: POLYVINYL ALCOHOL 1.4% OP 15 ML SOL OP SCH ×4 (05:27→23:15)
--- NOTE | 2019-02-06 05:30 | NUR ---
PT SLEEPING, OPEN EYES TO TOUCH, DUE EYEDROPS ADMINISTERED, BLOOD SUGAR CHECKED WITH 123 RESULT, 15 ML G-TUBE RESIDUAL NOTED, 100% SAT ON 70% FIO2, NO RESP DISTRESS NOTED, MONITORED CLOSELY.
[2019-02-06] MEDS: BLOOD GLUCOSE MONITORING 1 DEV DEV FS SCH ×4 (06:39→21:27)
[2019-02-06] MEDS: ALBUTEROL SULFATE/IPRATROPIU 3 ML SOL IH SCH ×3 (06:39→19:41)
[2019-02-06] MEDS: ACETYLCYSTEINE 10% (100 MG/ML) 100 MG/ML VIAL INH SCH ×2 (06:40→19:41)
--- NOTE | 2019-02-06 06:40 | NUR ---
RECEIVED PT ON DOCUMENTED SETTINGS, ALARMS ARE ON AND AUDIBLE, PTS TRACH PORTEX 8 IS SECURE PT IN HF ASLEEP BS COARSE, HHN GIVEN WITH 3 MG DUONEB AND 2 ML MUCOMYST, CPT DONE SX LG YELLOW SECRETIONS, BMV HOB, VENT PLUGGED INTO RED OUTLET, CONT POX IN PLACE
--- NOTE | 2019-02-06 07:18 | NUR ---
PT SLEEPING, NO SIGNS OF DISTRESS, BEDSIDE REPORT GIVEN TO ESTELLE RANDOLPH FOR CONTINUITY OF CARE.
--- NOTE | 2019-02-06 07:19 | NUR ---
RECEIVED REPORT FROM WAGE CONCILIATOR NURSE. PATIENT LYING DOWN IN BED SLEEPING, AROUSABLE BY VOICE. AAOX1, APHASIC, ABLE TO NOD "YES" OR "NO". ON TRACH TO VENT WITH VENT SETTINGS: FIO2:60%, VT:450, RATE:10, FLOW 50, PEEP:5, PMAX:50 WITH O2 SAT AT 99%. IV SITE INTACT, PATENT, AND INFUSING IVF PER MD ORDERS. BEAN CATHETER IN PLACE DRAINING, CLEAR, YELLOW URINE. GTUBE SITE INTACT, PATENT, AND INFUSING CONTINOUS FEEDING PER MD ORDERS. SKIN COLOR APPROPRIATE TO ETHNICITY, WARM TO TOUCH. HAS SACRAL PRESSURE ULCER, DRESSING IS DRY AND INTACT. HAS LEFT LEG SKIN TEAR AND LEFT FOREARM SKIN TEAR, VERSATEL DRESSING CURRENTLY ON SKIN TEARS. REVIEWED PLAN OF CARE WITH PATIENT. UNABLE TO COMPREHEND. SAFETY MEASURES IN PLACE, CALL LIGHT WITHIN REACH. WILL CONTINUE TO MONITOR.
[2019-02-06 08:47] LABS: BASOPHILS # (AUTO) 0.1 K/uL (0.00-0.22); BASOPHILS % (AUTO) 0.5 % (0.0-2.0); EOSINOPHILS # (AUTO) 0.2 K/uL (0-0.4); HEMATOCRIT 29.5 % (36-52); HEMOGLOBIN 9.4 g/dL (12.0-18.0); LYMPHOCYTES # (AUTO) 1.5 K/uL (2.0-11.5); LYMPHOCYTES % (AUTO) 10.3 % (20.5-51.1); MEAN CORPUSCULAR HEMOGLOBIN 28 pg (27-31); MEAN CORPUSCULAR HGB CONC 32 g/dL (33-37); MEAN CORPUSCULAR VOLUME 87.9 fL (80-94); MONOCYTES # (AUTO) 0.7 K/uL (0.8-1.0); MONOCYTES % (AUTO) 4.8 % (1.7-9.3); NEUTROPHILS # (AUTO) 12.3 K/uL (1.8-7.7); NEUTROPHILS % (AUTO) 83.4 % (42.2-75.2); PLATELET COUNT (AUTO) 355 K/uL (140-450); RED BLOOD CELL COUNT(AUTO) 3.35 MIL/uL (4.20-6.10); RED CELL DISTRIBUTION WIDTH 16.1 % (11.6-13.7); WHITE BLOOD COUNT (AUTO) 14.7 K/uL (4.8-10.8)
[2019-02-06 09:04] LABS: PHOSPHORUS 3.7 mg/dL (2.5-4.9)
[2019-02-06 09:22] LABS: FOLIC ACID 18.4 ng/mL (>3.0)
--- NOTE | 2019-02-06 09:30 | NUR ---
PATIENT LYING DOWN IN BED SLEEPING, AROUSABLE BY VOICE. NO DISTRESS NOTED. FLACC 0. SCHEDULED MEDICATIONS DUE GIVEN. WILL CONTINUE TO MONITOR.
[2019-02-06] MEDS: amLODIPine 5 MG TAB GT SCH (09:37)
[2019-02-06] MEDS: DOCUSATE 100 MG/10 ML UDC GT SCH ×2 (09:37→20:54)
[2019-02-06] MEDS: ASCORBIC ACID 500 MG/5 ML ORASYR GT SCH (09:37)
[2019-02-06] MEDS: MULTIVITAMIN/MINERALS 15 ML UDBTL GT SCH (09:37)
[2019-02-06] MEDS: FAMOTIDINE 20 MG TAB GT SCH ×2 (09:38→20:55)
[2019-02-06 10:10] LABS: ANION GAP 10.5 (8-16); CARBON DIOXIDE 31.7 mmol/L (21-32); CREATININE 0.3 mg/dL (0.7-1.3); POTASSIUM 4.2 mmol/L (3.5-5.1)
--- NOTE | 2019-02-06 10:15 | NUR ---
ASSISTED WIENER PACKER IN CLEANING AND REPOSITIONING PATIENT. PATIENT TOLERATED WELL. WILL CONTINUE TO MONITOR.
--- NOTE | 2019-02-06 11:15 | NUR ---
DR. BURNS AT BEDSIDE CHECKING SACRAL PRESSURE ULCER. PER DR. BURNS, NO DEBRIDEMENT NEEDED AT THIS TIME FOR THE WOUND.
[2019-02-06] MEDS: THERAHONEY GEL 42.5 GM TP SCH (12:19)
--- NOTE | 2019-02-06 12:30 | NUR ---
PATIENT LYING DOWN IN BED SLEEPING, AROUSABLE BY VOICE. NO DISTRESS NOTED. CONDITION UNCHANGED. SCHEDULED MEDICATIONS DUE GIVEN. WILL CONTINUE TO MONITOR.
[2019-02-06] MEDS: NACL 0.9% 1,000 ML IV SCH (13:05)
--- NOTE | 2019-02-06 17:29 | NUR ---
DECREASED FIO2 TO 50 SPO2 100
--- NOTE | 2019-02-06 19:17 | NUR ---
GAVE REPORT TO CYBER SECURITY ENGINEER NURSE FOR CONTINUITY OF CARE. PATIENT IN STABLE CONDITION.
--- NOTE | 2019-02-06 19:18 | NUR ---
RECEIVED PT AWAKE WITH TRACKING, APHASIC, VITAL SIGNS STABLE, TRACH TO VENT WITH SAT OF 98% ON 50% FI02, FLACC-0, IVF INFUSING WELL, G-TUBE INFUSING WELL, HOB ELEVATED AT ALL TIMES, BEAN CATHETER TO GRAVITY WITH YELLOW URINE OUTPUT, MAINTAINED ON CONTACT ISOLATION, PT BEDBOUND, WILL REPOSITION Q2H AND OFFLOAD PRESSURE AREAS, SAFETY MEASURES IN PLACE, CALL LIGHT WITHIN REACH.
--- NOTE | 2019-02-06 19:53 | NUR ---
Received pt stable on vent support at documented settings, suctioned moderate amounts of thick white creamy secretions, hhn tx given with CPT, no resp distress or SOB noted at this time, Portex 8 trach secured/patent/midline, alarms set and audible, ambu bag at bedside, vent plugged into red outlet, cont pulse ox on, will cont to monitor.
--- NOTE | 2019-02-06 21:00 | NUR ---
BLOOD SUGAR CHECKED WITH 116 RESULT, NO COVERAGE NEEDED, 5ML G-TUBE RESIDUAL NOTED, DUE MEDS ADMINISTERED, ORAL CARE DONE USING VAP KIT, REPOSITIONED AND OFFLOAD PRESSURE AREAS, ALL NEEDS ANTICIPATED.
--- NOTE | 2019-02-06 22:33 | NUR ---
PT HAD MODERATE SOFT BROWN BM, PERINEAL CARE DONE, SACRAL OPTIFOAM DRESSING SOILED, NEW DRESSING APPLIED, REPOSITIONED AND OFFLOAD PRESSURE AREAS, SUCTIONED SECRETION ORALLY AND TRACHEALLY, MODERATE SECRETION NOTED, MAINTAINED HOB ELEVATED AT 30 DEG, MONITORED CLOSELY.
--- NOTE | 2019-02-06 23:30 | NUR ---
PT SLEEPING, OPEN EYES TO TOUCH, VITAL SIGNS STABLE, DUE EYE DROPS ADMINISTERED, ORAL CARE DONE, SUCTION SECRETION PRN, IVF INFUSING WELL, REPOSITIONED AND OFFLOAD PRESSURE AREAS, CONTINUE TO MONITOR CLOSELY,
[2019-02-07] VITALS: BP 137/75
[2019-02-07] MEDS: NACL 0.9% 1,000 ML IV SCH ×3 (00:28→20:28)
[2019-02-07] MEDS: HYDRAGUARD CREAM TP SCH ×2 (00:49→11:59)
--- NOTE | 2019-02-07 03:50 | NUR ---
PT SLEEPING, OPEN EYES TO TOUCH, VITAL SIGNS STABLE, FLACC-0, NO SIGNS OF RESP DISTRESS, IVF INFUSING WELL, MONITORED CLOSELY.
[2019-02-07 04:00] VITALS: BP 125/77
[2019-02-07] MEDS: PIPER/TAZO 3.375GM/D5W PREMIX 50 ML IV SCH ×3 (04:36→21:29)
[2019-02-07] MEDS: BACLOFEN 10 MG TAB GT SCH ×3 (04:37→21:29)
--- NOTE | 2019-02-07 05:00 | NUR ---
PT REPOSITIONED AND OFFLOAD PRESSURE AREAS, 5ML G-TUBE RESIDUAL NOTED, NEW FEEDING BAG STARTED, HOB AT 30 DEG ANGLE, DUE MEDICATION AND IV ANTIBIOTIC ADMINISTERED, MONITORED CLOSELY.
[2019-02-07] MEDS: POLYVINYL ALCOHOL 1.4% OP 15 ML SOL OP SCH ×3 (05:50→18:42)
--- NOTE | 2019-02-07 06:00 | NUR ---
BLOOD SUGAR CHECKED WITH 108 RESULT, NO COVERAGE NEEDED, EYE DROPS GIVEN, NO SIGNS OF DISTRESS, IVF INFUSING WELL, MONITORED CLOSELY.
[2019-02-07 06:49] LABS: BASOPHILS # (AUTO) 0.1 K/uL (0.00-0.22); BASOPHILS % (AUTO) 0.7 % (0.0-2.0); EOSINOPHILS # (AUTO) 0.3 K/uL (0-0.4); EOSINOPHILS % (AUTO) 2.7 % (0.0-4.0); HEMATOCRIT 29.5 % (36-52); HEMOGLOBIN 9.5 g/dL (12.0-18.0); LYMPHOCYTES # (AUTO) 1.6 K/uL (2.0-11.5); LYMPHOCYTES % (AUTO) 13.7 % (20.5-51.1); MEAN CORPUSCULAR HEMOGLOBIN 29 pg (27-31); MEAN CORPUSCULAR HGB CONC 32 g/dL (33-37); MEAN CORPUSCULAR VOLUME 88.1 fL (80-94); MONOCYTES # (AUTO) 0.7 K/uL (0.8-1.0); MONOCYTES % (AUTO) 6.2 % (1.7-9.3); NEUTROPHILS # (AUTO) 8.8 K/uL (1.8-7.7); NEUTROPHILS % (AUTO) 76.7 % (42.2-75.2); PLATELET COUNT (AUTO) 335 K/uL (140-450); RED BLOOD CELL COUNT(AUTO) 3.35 MIL/uL (4.20-6.10); RED CELL DISTRIBUTION WIDTH 15.9 % (11.6-13.7); WHITE BLOOD COUNT (AUTO) 11.5 K/uL (4.8-10.8)
[2019-02-07] MEDS: BLOOD GLUCOSE MONITORING 1 DEV DEV FS SCH ×4 (06:54→21:33)
--- NOTE | 2019-02-07 07:28 | NUR ---
PT SLEEPING, NO SIGNS OF DISTRESS, BEDSIDE REPORT GIVEN TO ESTELLE GARCIA FOR CONTINUITY OF CARE.
[2019-02-07 07:29] LABS: ANION GAP 10.3 (8-16); CARBON DIOXIDE 30.7 mmol/L (21-32); CREATININE 0.3 mg/dL (0.7-1.3)
--- NOTE | 2019-02-07 07:29 | NUR ---
RECEIVED BEDSIDE REPORT FROM ESTELLE MENDEZ. PATIENT ON TELE MONITOR AND CONTACT ISOLATION FOR MRSA OF SACRAL WOUND. PATIENT NONVERBAL AND ON TRACH TO VENT, SETTINGS: FIO2 50%, VT 450 ML, RATE 10, PEEP 5. L FA SKIN TEAR, DRESSING CLEAN DRY AND INTACT AND SACRAL ULCER DRESSING CLEAN DRY AND INTACT. G TUBE FEEDING OF GLUCERNA 1.2. G TUBE PATENT, SWOOSH HEARD AND GASTRIC RESIDUAL OF 5 ML. FALL RISK PROTOCOL IN PLACE, BED IN LOW POSITION, CALL LIGHT WITHIN REACH, SIDE RAILS X2 UP
[2019-02-07 07:38] LABS: MAGNESIUM 2.2 mg/dL (1.8-2.4); PHOSPHORUS 3.5 mg/dL (2.5-4.9)
[2019-02-07] MEDS: ALBUTEROL SULFATE/IPRATROPIU 3 ML SOL IH SCH ×3 (07:38→21:04)
--- NOTE | 2019-02-07 07:58 | NUR ---
FOUND PT RESTING WELL & JOSE MECH VENT SETTINGS WELL ON AC SETTINGS OF RR: 10, VT:450, PEEP OF 5, FIO2 OF 50%. WITH A PORTEX SIZE 8. VENT WAS CONNECTED TO A RED PLUG OUT LET, AMBU BAG AT BEDSIDE. SMALL AMOUNT OF THICK WHITE SECRETIONS SUCTIONED. ALARM SETTINGS ON & AUDIBLE.
[2019-02-07 08:00] VITALS: BP 114/72
[2019-02-07] MEDS: ASCORBIC ACID 500 MG/5 ML ORASYR GT SCH (08:28)
[2019-02-07] MEDS: DOCUSATE 100 MG/10 ML UDC GT SCH ×2 (08:28→21:29)
[2019-02-07] MEDS: amLODIPine 5 MG TAB GT SCH (08:29)
[2019-02-07] MEDS: FAMOTIDINE 20 MG TAB GT SCH ×2 (08:29→21:29)
--- NOTE | 2019-02-07 08:46 | NUR ---
ADMINISTERED SCHEDULED MEDS. PATIENT TOLERATED WELL
[2019-02-07] MEDS ORDERED: VANCOMYCIN PER PHARMACY MC PRN (09:30)
--- NOTE | 2019-02-07 10:12 | NUR ---
PATIENT REPOSITIONED TO L SIDE LYING POSITION, PATIENT TOLERATED WELL Addendum: 02/07/19 at 1253 by Meme Mojica RN DISREGARD ABOVE. TURNED TO R SIDE LYING POSITION
[2019-02-07] MEDS: MULTIVITAMIN/MINERALS 15 ML UDBTL GT SCH (10:22)
[2019-02-07] MEDS: VANCOMYCIN 1GM/DEXT 5% PREMIX 200 ML IV SCH ×2 (10:32→22:47)
[2019-02-07 12:00] VITALS: BP 128/74
[2019-02-07] MEDS: THERAHONEY GEL 42.5 GM TP SCH (12:00)
--- NOTE | 2019-02-07 12:11 | NUR ---
PATIENT SLEEPING, NO DISTRESS NOTED ON TRACH TO VENT. ADMINISTERED SCHEDULED MEDS. PATIENT TOLERATED WELL
--- NOTE | 2019-02-07 12:52 | NUR ---
PATIENT TURNED TO L SIDE LYING POSITION
[2019-02-07] MEDS: ACETYLCYSTEINE 10% (100 MG/ML) 100 MG/ML VIAL INH SCH ×2 (13:34→21:05)
--- NOTE | 2019-02-07 13:56 | NUR ---
PATIENT LYING IN BED, ON TRACH TO VENT, NO DISTRESS NOTED
--- NOTE | 2019-02-07 15:06 | NUR ---
02/07/19 RD FOLLOW UP COMPLETED PLEASE REFER TO NUTRITION ASSESSMENT UNDER CARE ACTIVITY FOR ESTIMATED NUTRITIONAL NEEDS. 1. CONTINUE GLUCERNA 1.2 AT 65 ML/HR X 24 HOURS -THIS PROVIDES 1560 ML TOTAL VOLUME, 1872 KCAL, 94 GM PROTEIN, 2760 ML TOTAL FREE WATER WITH FWF. THIS MEETS 100% ESTIMATED KCAL NEEDS AND 83% ESTIMATED PROTEIN NEEDS 2. CONTINUE 200 ML FREE WATER FLUSH Q4H 3. CONTINUE VITAMIN C AND MULTIVITAMIN FOR WOUNDS 4. RD TO FOLLOW-UP 2-3 DAYS, HIGH RISK LAN CASE RD
--- NOTE | 2019-02-07 15:17 | NUR ---
PATIENT SLEEPING, ON TRACH TO VENT, NO DISTRESS NOTED
--- NOTE | 2019-02-07 15:50 | NUR ---
WENT IN TO CHECK ON PT FOR VENT, PT WAS BEING MOVED BY RN, PT STARTED TO DESATURATE DOWN TO SPO2 50%, BEGAN TO SUCTION PT AND RECEIVED MODERATE AMOUNT OF COPIOUS MUCUS PLUGS. PATIENT BEGAN TO INCREASE ON SATURATION TO 95-99% . PATIENT MAINTAINED GOOD SATURATION AFTER SUCTIONING OF MUCUS PLUGS.
[2019-02-07 16:00] VITALS: BP 151/87
--- NOTE | 2019-02-07 17:18 | NUR ---
PATIENT SLEEPING, ON TRACH TO VENT, NO DISTRESS NOTED
--- NOTE | 2019-02-07 18:39 | NUR ---
WENT IN FOR LAST VENT CHECK, PATIENT WAS SATTING AT SPO2 OF 93%, SUCTIONED PATIENT TWICE AND AGAIN WAS ABLE TO OBTAIN THICK COPIOUS AMOUNT OF SECRETIONS. AFTER SUCTIONING PATIENT REMAINED STABLE AT SPO2 OF 99%
--- NOTE | 2019-02-07 19:19 | NUR ---
BEDSIDE REPORT GIVEN TO ESTELLE ZHANG. PATIENT ENDORSED IN STABLE CONDITION
[2019-02-07 20:00] VITALS: BP 137/78
--- NOTE | 2019-02-07 20:10 | NUR ---
SEEN PT AWAKE, ALERT, APHASIC. PT ABLE TO COMMUNICATE BY BLINKING EYES FOR "YES" OR "NO". INITIAL ASSESSMENT DONE. PT ON VENT MACHINE W/O ANY RESPIRATORY DISTRESS. GTUBE CHECKED. NO RESIDUAL NOTED. BEAN CATH IN PLACED TO GRAVITY W/ ADEQUATE OUTPUT. VITAL SIGNS CHECKED AND W/IN NORMAL. PT DIDN'T BLINKED HIS EYES WHEN ASKED IF HE'S IN PAIN. PT HAD BM. WELCOME WAGON HOSTESS HERE TO HELP CLEAN PT. PERICARE RENDERED. PT REPOSITIONED ON HIS RIGHT SIDE. SAFETY REINFORCED. WILL CONTINUE TO MONITOR.
--- NOTE | 2019-02-07 21:20 | NUR ---
PT JUST FINISHED W/ HIS BREATHING TREATMENT. HEAD OF THE BED ELEVATED TO 30 DEGREES. NO RESIDUAL NOTED. MEDICATIONS CRUSHED AND GIVEN W/ 30ML WATER FLUSH. NO RESISTANCE MET. TEACHINGS PROVIDED. WILL CONTINUE TO MONITOR.
--- NOTE | 2019-02-07 21:31 | NUR ---
RECEIVED PATIENT TRACH PORTEX 8 TO VENT ON SETTINGS: AC/VC 450, 10, +5, 50%. VENT CHECK DONE. VENT ALARMS ON AND AUDIBLE. VENT PLUGGED INTO RED OUTLET. AMBU BAG AT BEDSIDE. CONTINUOUS PULSE OX ON AND FUNCTIONING; ALARMS ON AND AUDIBLE. SCHEDULED BREATHING TREATMENTS ADMINISTERED. TOLERATED TREATMENTS WELL. NO ADVERSE SIDE EFFECTS. CPT DONE WITH TREATMENTS. PATIENT TOLERATED CPT WELL. SUCTIONED LARGE AMOUNTS OF THICK, PALE YELLOW SECRETIONS. NO RESPIRATORY DISTRESS NOTED AT THIS TIME. WILL CONTINUE TO MONITOR.
--- NOTE | 2019-02-07 22:30 | NUR ---
PT HAD MODERATE AMOUNT OF BROWN, PASTY STOOL. PERICARE RENDERED. PT REPOSITIONED FOR COMFORT ON HIS RIGHT SIDE. PT SUCTIONED W/ YELLOW, THICK MUCOUS. PT TOLERATED PROCEDURE WELL. WILL CONTINUE TO MONITOR.
--- NOTE | 2019-02-07 23:47 | NUR ---
VENT CHECK DONE. VENT ALARMS ON AND AUDIBLE. SUCTIONED LARGE AMOUNTS OF THICK, YELLOW SECRETIONS. NO ACUTE RESPIRATORY DISTRESS NOTED AT THIS TIME. WILL CONTINUE TO MONITOR.
[2019-02-08] VITALS (7 sets, daily range): BP systolic 123–155; BP diastolic 70–89
[2019-02-08] MEDS: POLYVINYL ALCOHOL 1.4% OP 15 ML SOL OP SCH ×5 (00:06→23:43)
--- NOTE | 2019-02-08 00:10 | NUR ---
PT'S PULSE OXIMETER READING LOW. PULSE OX PROBE CHANGED AND O2SAT READS 100%. VITAL SIGNS CHECKED AND W/IN NORMAL. GTUBE FEEDING REPLACED. PT'S EYE DROPS GIVEN ORDERED. PT REPOSITIONED ON HIS LEFT SIDE. ORAL CARE RENDERED. WILL CONTINUE TO MONITOR.
[2019-02-08] MEDS: HYDRAGUARD CREAM TP SCH ×2 (00:26→13:00)
--- NOTE | 2019-02-08 02:30 | NUR ---
PT SLEEPING COMFORTABLY. PT REPOSITIONED ON HIS RIGHT SIDE. IVF INFUSING WELL WELL GTUBE FEEDING. WILL CONTINUE TO MONITOR. ISOLATION PRECAUTION REINFORCED.
--- NOTE | 2019-02-08 04:20 | NUR ---
SEEN PT ASLEEP BUT AROUSABLE. VITAL SIGNS CHECKED AND W/IN NORMAL. AM CARE RENDERED. NO BM NOTED. PT REPOSITIONED ON HIS LEFT SIDE. NO RESIDUAL NOTED ON GTUBE. MEDICATIONS GIVEN ORDERED. PT KEPT COMFORTABLE.
[2019-02-08] MEDS: PIPER/TAZO 3.375GM/D5W PREMIX 50 ML IV SCH ×3 (04:23→20:23)
[2019-02-08] MEDS: BACLOFEN 10 MG TAB GT SCH ×3 (04:23→20:23)
--- NOTE | 2019-02-08 05:14 | NUR ---
WILL ENDORSE CARE TO ESTELLE BANDA FOR CONTINUITY OF CARE.
--- NOTE | 2019-02-08 05:25 | NUR ---
RECEIVED BEDSIDE REPORT FROM LEATHA MCCABE. PT IS APHASIC. ABLE TO COMMUNICATE BY BLINKING EYES. PT IS TRACH TO VENT. VT 450 RR 10 PEEP 4 FIO2 50% RT AT BEDSIDE. PT WITH SACRAL WOUND DRESSING C/D/I. VERSATEL ON R FA AND LEFT LEG. PT WITH BEAN DARNING YELLOW URINE. GLUCERNA 1.2 65ML/H WATER FLUSH 150ML/Q4H STARTED TODAY AT 0005. PT WITH NO RESIDUAL. PT ON CONTACT ISOLATION FOR MRSA OF [place] GIVEN. VS: 97.4 70 RR 12 100% 134/70 FLACC 0. RT WILL LOWER FIO2 TO 40% WILL CONTINUE TO MONITOR. SAFETY MEASURES ARE IN PLACE. HOB ELEVATED.
[2019-02-08] MEDS: BLOOD GLUCOSE MONITORING 1 DEV DEV FS SCH ×4 (05:58→20:44)
[2019-02-08] MEDS: NACL 0.9% 1,000 ML IV SCH (05:58)
--- NOTE | 2019-02-08 06:01 | NUR ---
NEW BAG OF IVF NOW INFUSING. BLOOD SUGAR 99 NO COVERAGE NEEDED. WILL CONTINUE TO MONITOR.
--- NOTE | 2019-02-08 07:17 | NUR ---
GAVE BEDSIDE REPORT TO STEFANIE MCCABE. PT ENDORSED IN STABLE CONDITION.
--- NOTE | 2019-02-08 07:20 | NUR ---
RECEIVED PT FROM TEACHER VOCATIONAL TRAINING NURSECALEB, PT IS ASLEEP WITH SIDE RAILS UP AND CALL LIGHT WITHIN REACH, SAFETY AND FALL PRECAUTION INITIATED. PT IS ON A TRACH TO VENT WITH FIO2 AT 40%, PT HAS AN IV LINE ON THE RT ARM G.22 WITH NS INFUSING AT 100ML/HR, INTACT, PT HAS A CONTINUOUS FEEDING OF GLUCERNA AT A RATE OF 65ML/HR WITH WATER FLUSHING OF 150Q4H VIA G-TUBE, IN PLACE AND INTACT. PT IS APHASIC AND O2 SATURATION IS AT 100%, PT HAS A STAGE 4 SACRAL ULCER REINFORCED WITH DRESSING.NO SIGN OF DISTRESS NOTED AND WILL MONITOR PT.
--- NOTE | 2019-02-08 07:40 | NUR ---
PT IS AWAKE AND LYING ON THE BED WITH TRACH TO VENT IN PLACE, VITAL SIGNS CHECKED AND BP IS 142/75, PULSE IS 67, O2 SATURASTION IS 100%, TEMPERATURE IS 97.6 AND RESPIRATION AT A RATE OF 20/MIN. NO SIGN OF DISTRESS NOTED AND WILL MONITOR PT.
[2019-02-08 07:56] LABS: BASOPHILS # (AUTO) 0.1 K/uL (0.00-0.22); BASOPHILS % (AUTO) 0.8 % (0.0-2.0); EOSINOPHILS # (AUTO) 0.3 K/uL (0-0.4); EOSINOPHILS % (AUTO) 2.5 % (0.0-4.0); HEMATOCRIT 28.7 % (36-52); HEMOGLOBIN 9.5 g/dL (12.0-18.0); LYMPHOCYTES # (AUTO) 1.7 K/uL (2.0-11.5); LYMPHOCYTES % (AUTO) 16.3 % (20.5-51.1); MEAN CORPUSCULAR HEMOGLOBIN 29 pg (27-31); MEAN CORPUSCULAR HGB CONC 33 g/dL (33-37); MEAN CORPUSCULAR VOLUME 87.6 fL (80-94); MONOCYTES # (AUTO) 0.6 K/uL (0.8-1.0); MONOCYTES % (AUTO) 5.8 % (1.7-9.3); NEUTROPHILS # (AUTO) 7.9 K/uL (1.8-7.7); NEUTROPHILS % (AUTO) 74.6 % (42.2-75.2); PLATELET COUNT (AUTO) 343 K/uL (140-450); RED BLOOD CELL COUNT(AUTO) 3.27 MIL/uL (4.20-6.10); WHITE BLOOD COUNT (AUTO) 10.6 K/uL (4.8-10.8)
[2019-02-08 08:01] LABS: ANION GAP 9.1 (8-16); CARBON DIOXIDE 30.8 mmol/L (21-32); CREATININE 0.3 mg/dL (0.7-1.3); POTASSIUM 3.9 mmol/L (3.5-5.1)
[2019-02-08 08:08] LABS: MAGNESIUM 2.1 mg/dL (1.8-2.4); PHOSPHORUS 3.1 mg/dL (2.5-4.9)
[2019-02-08] MEDS: ALBUTEROL SULFATE/IPRATROPIU 3 ML SOL IH SCH ×3 (08:34→19:33)
[2019-02-08] MEDS: ACETYLCYSTEINE 10% (100 MG/ML) 100 MG/ML VIAL INH SCH ×2 (08:46→19:34)
--- NOTE | 2019-02-08 09:08 | NUR ---
CHEST X-RAY WAS BEING DONE TO PT NOW.
--- NOTE | 2019-02-08 09:14 | NUR ---
CHEST X-RAY WAS FINISHED NOW.
[2019-02-08] MEDS: ASCORBIC ACID 500 MG/5 ML ORASYR GT SCH (09:24)
[2019-02-08] MEDS: DOCUSATE 100 MG/10 ML UDC GT SCH ×2 (09:24→20:23)
[2019-02-08] MEDS: MULTIVITAMIN/MINERALS 15 ML UDBTL GT SCH (09:25)
[2019-02-08] MEDS: amLODIPine 5 MG TAB GT SCH (09:25)
[2019-02-08] MEDS: FAMOTIDINE 20 MG TAB GT SCH ×2 (09:25→20:23)
--- NOTE | 2019-02-08 09:33 | NUR ---
PT IS AWAKE AND LYING ON THE BED, VITAL SIGNS CHECKED DONE AND BP IS 1132/68, PULSE IS 64, O2 SATURATION IS 97%, RESPIRATION IS 20/MIN, MEDICATIONS WERE CRUSHED AND GIVEN VIA G-TUBE AND PT TOLERATED IT, NO RESIDUAL NOTED. WILL CONTINUE TO MONITOR PT.
[2019-02-08] MEDS: VANCOMYCIN 1GM/DEXT 5% PREMIX 200 ML IV SCH ×2 (11:51→22:16)
--- NOTE | 2019-02-08 12:01 | NUR ---
PT IS AWAKE, VITAL SIGNS TAKEN AND IS STABLE, BLOOD GLUCOSE CHECK DONE AND RESULT IS 98, NO INSULIN COVERAGE NEEDED, IV MEDICATION AND EYE DROPS WERE GIVEN TO PT AND TOLERATED IT. NO SIGN OF DISTRESS NOTED AND WILL MONITOR PT.
--- NOTE | 2019-02-08 12:52 | NUR ---
PT WAS REPOSITIONED AND BACLOFEN WAS GIVEN VIA G-TUBE, NO RESIDUAL NOTED. NO SIGN OF DISTRESS NOTED.WILL MONITOR PT.
[2019-02-08] MEDS: THERAHONEY GEL 42.5 GM TP SCH (13:00)
--- NOTE | 2019-02-08 13:31 | NUR ---
PT IS HAVING BREATHING TREATMENT RIGHT NOW, RT ON THE BEDSIDE.
--- NOTE | 2019-02-08 17:25 | NUR ---
PT IS AWAKE AND WAS REPOSITIONED AND CLEANED, DRESSING WAS CHANGED. BLOOD GLUCOSE CHECK DONE AND RESULT IS 98. NO INSULIN COVERAGE NEEDED. WILL MONITOR PT.
--- NOTE | 2019-02-08 18:00 | NUR ---
A NEW BAG OF FEEDING WAS STARTED TO PT NOW AT A RATE OF 65ML/HR WITH WATER FLUSH OF 150Q4H.
--- NOTE | 2019-02-08 19:10 | NUR ---
ENDORSED PT TO HOTBED TRANSFER OPERATOR NURSE, RIGOBERTO FOR CONTINUITY OF CARE, PT IS STALE AT THIS TIME.
--- NOTE | 2019-02-08 19:12 | NUR ---
RECIEVED PT AWAKE BUT APHASIC IN STABLE CONDITION.TRACH TO VENT WITH O2 SAT 100%,NO RESPIRATORY DISTRESS NOTED.IV SITE INTACT AND PATENT,IVF INFUSING WELL.WITH BEAN CATH DRAINING WITH CLEAR YELLOW URINE . ON HOB 30 DEGREES. WITH ON GOING TUBE FEEDING TOLERATED. BED ON LOW POSITION. SIDE RAILS UP,CALL LIGHT WITHIN REACH. WILL CONTINUE TO MONITOR
--- NOTE | 2019-02-08 19:55 | NUR ---
RECEIVED PATIENT TRACH PORTEX 8 TO VENT ON SETTINGS AC/VC: 450, 10, +5, 40%. VENT CHECK DONE. VENT PLUGGED INTO RED OUTLET. VENT ALARMS ON AND AUDIBLE. AMBU BAG AT BEDSIDE. SCHEDULED BREATHING TREATMENTS ADMINISTERED. TOLERATED TREATMENTS WELL WITHOUT ADVERSE SIDE EFFECTS. CPT DONE WITH BREATHING TREATMENTS. TOLERATED THERAPY WELL. AIRWAY SECURE AND PATENT. SUCTIONED MODERATE AMOUNT OF THICK, CREAMY SECRETIONS. NO RESPIRATORY DISTRESS NOTED AT THIS TIME. WILL CONTINUE TO MONITOR.
--- NOTE | 2019-02-08 20:30 | NUR ---
G TUBE FEEDING CHECK NO RESIDUAL NOTED . ALL NIGHT SCHEDULED MEDS GIVEN
--- NOTE | 2019-02-08 21:09 | NUR ---
VENT CHECK DONE. VENT ALARMS ON AND AUDIBLE. TITRATED FIO2 TO 35%. PULSE OX SAT 96%. NO RESPIRATORY DISTRESS NOTED AT THIS TIME. WILL CONTINUE TO MONITOR.
--- NOTE | 2019-02-08 22:45 | NUR ---
SUCTIONED PT THROUGH THE MOUTH . OBTAINED WHITISH SALIVA IN SMALL AMOUNT.
--- NOTE | 2019-02-08 23:30 | NUR ---
VENT CHECK DONE. VENT ALARMS ON AND AUDIBLE. SUCTIONED LARGE AMOUNT OF THICK, YELLOW SECRETIONS THROUGH TRACH. ORALLY SUCTIONED MODERATE AMOUNT OF THIN, CLEAR SECRETIONS. NO RESPIRATORY DISTRESS NOTED AT THIS TIME. WILL CONTINUE TO MONITOR.
--- NOTE | 2019-02-09 | NUR ---
MADE ROUNDS PATIENT ON STABLE CONDITION,NO RESPIRATORY DISTRESS NOTED .
[2019-02-09] MEDS: NACL 0.9% 1,000 ML IV SCH ×2 (00:59→20:59)
[2019-02-09] MEDS: HYDRAGUARD CREAM TP SCH ×2 (01:05→12:12)
--- NOTE | 2019-02-09 01:59 | NUR ---
VENT CHECK DONE. VENT ALARMS ON AND AUDIBLE. CPT DONE. TOLERATED WELL. SUCTIONED LARGE AMOUNT OF THICK, YELLOW SECRETIONS. ORALLY SUCTIONED MODERATE AMOUNT OF THIN, CLEAR SECRETIONS. NO RESPIRATORY DISTRESS NOTED. WILL CONTINUE TO MONITOR.
--- NOTE | 2019-02-09 02:00 | NUR ---
MADE ROUNDS . RT WITH PATIENT .O2 SAT 100%.WILL CONTINUE TO MONITOR.
[2019-02-09 03:48] VITALS: BP 132/76
--- NOTE | 2019-02-09 04:00 | NUR ---
CONTINUATION OF ABOVE NOTE ; NO SIGNS OF RESPIRATORY DISTRESS. IV SITE INTACT AND PATENT .G TUBE FEEDING INFUSING WELL.WILL CONTINUE TO MONITOR
--- NOTE | 2019-02-09 04:00 | NUR ---
MADE ROUNDS PATIENT ON STABLE CONDITION,NO SIGNS OF DIST
[2019-02-09] MEDS: PIPER/TAZO 3.375GM/D5W PREMIX 50 ML IV SCH ×3 (05:13→20:39)
[2019-02-09] MEDS: BACLOFEN 10 MG TAB GT SCH ×3 (05:14→20:39)
[2019-02-09] MEDS: POLYVINYL ALCOHOL 1.4% OP 15 ML SOL OP SCH ×4 (05:20→23:36)
[2019-02-09] MEDS: BLOOD GLUCOSE MONITORING 1 DEV DEV FS SCH ×4 (06:00→21:37)
--- NOTE | 2019-02-09 06:00 | NUR ---
MAKE ROUNDS PATIENT AWAKE ,NO SIGNS OF RESPIRATORY DISTRESS NOTED.O2 SAT98%.IVF INFUSING WELL.OFFLOAD PRESSURE AREA.PERINEAL AND CATHETER CARE DONE. GT FEEDING NO RESIDUAL FEEDING.
--- NOTE | 2019-02-09 07:00 | NUR ---
RECEIVED PT FROM FIELD MECHANIC/SITE LEAD NURSE, ELIEZER, PT IS AWAKE WITH MOTHER ON THE BEDSIDE, PT HAS AN IV LINE ON THE RT ARM G.20 ON SALINE LOCK, PT VERBALIZED A PAIN RATE OF 5/10 ON THE INCISION SITE, NO OTHER UNTOWARD SYMPTOM NOTED. WILL MONITOR PT.
--- NOTE | 2019-02-09 07:10 | NUR ---
ENDORSED PT IN STABLE CONDITION TO AM NURSE FOR CONTINUITY OF CARE.
--- NOTE | 2019-02-09 07:15 | NUR ---
RECEIVED PT FROM MEDICAL RECEPTIONIST BILLER NURSE, GABRIEL, PT IS ASLEEP ON A TRACH TO VENT WITH FIO2 AT 40%, SIDE RAILS ARE UP AND CALL LIGHT WITHIN REACH, FALL PRECAUTION INITIATED, BEAN CATHETER IN PLACE, BED IN LOW POSITION, BED ALARM ACTIVATED, PT HAS AN IV LINE ON THE RT ARM G.20 WITH NS INFUSING AT A RATE OF 50ML/HR, G- TUBE IN PLACE WITH CONTINUOUS FEEDING OF GLUCERNA 1.2 AT A RATE OF 65ML/HR AND WATER FLUSHING OF 150Q4H. NO SIGN OF DISTRESS NOTED AND WILL MONITOR PT.
--- NOTE | 2019-02-09 07:45 | NUR ---
PT IS AWAKE AND VITAL SIGNS CHECKED AND BP IS 113/70, PULSE IS 61, TEMPERATURE IS 97.4, O2 SATURATION IS 99% AND RESPIRATION IS 18/MIN, NO SIGN OF DISTRESS NOTED AN WILL MONITOR PT.
[2019-02-09 08:00] VITALS: BP 113/70
[2019-02-09 08:33] LABS: BASOPHILS # (AUTO) 0.1 K/uL (0.00-0.22); BASOPHILS % (AUTO) 0.9 % (0.0-2.0); EOSINOPHILS # (AUTO) 0.4 K/uL (0-0.4); EOSINOPHILS % (AUTO) 3.5 % (0.0-4.0); HEMATOCRIT 29.1 % (36-52); HEMOGLOBIN 9.4 g/dL (12.0-18.0); LYMPHOCYTES # (AUTO) 1.9 K/uL (2.0-11.5); LYMPHOCYTES % (AUTO) 17.1 % (20.5-51.1); MEAN CORPUSCULAR HEMOGLOBIN 28 pg (27-31); MEAN CORPUSCULAR HGB CONC 32 g/dL (33-37); MEAN CORPUSCULAR VOLUME 87.9 fL (80-94); MONOCYTES # (AUTO) 0.6 K/uL (0.8-1.0); MONOCYTES % (AUTO) 5.6 % (1.7-9.3); NEUTROPHILS # (AUTO) 8.2 K/uL (1.8-7.7); NEUTROPHILS % (AUTO) 72.9 % (42.2-75.2); PLATELET COUNT (AUTO) 363 K/uL (140-450); RED BLOOD CELL COUNT(AUTO) 3.31 MIL/uL (4.20-6.10); RED CELL DISTRIBUTION WIDTH 16.2 % (11.6-13.7); WHITE BLOOD COUNT (AUTO) 11.2 K/uL (4.8-10.8)
[2019-02-09] MEDS: FAMOTIDINE 20 MG TAB GT SCH ×2 (08:45→20:39)
[2019-02-09] MEDS: ASCORBIC ACID 500 MG/5 ML ORASYR GT SCH (08:46)
[2019-02-09] MEDS: DOCUSATE 100 MG/10 ML UDC GT SCH ×2 (08:46→20:38)
[2019-02-09] MEDS: MULTIVITAMIN/MINERALS 15 ML UDBTL GT SCH (08:46)
[2019-02-09] MEDS: amLODIPine 5 MG TAB GT SCH (09:00)
[2019-02-09 09:05] LABS: ANION GAP 11.2 (8-16); CARBON DIOXIDE 29.8 mmol/L (21-32)
[2019-02-09 09:07] LABS: PHOSPHORUS 3.3 mg/dL (2.5-4.9)
--- NOTE | 2019-02-09 09:07 | NUR ---
PT IS AWAKE AND VITAL SIGNS CHECKED PRIOR TO MEDICATION ADMINISTRATION, BP IS 113/62, PULSE IS 58, 02 SATURATION IS 100% AND RESPIRATION IS 18/MIN, BP MEDICATION WAS NOT GIVEN, DR. BRICE INFORMED, OTHER MEDICATIONS WERE GIVEN VIA G-TUBE AND PT TOLERATED IT, NO RESIDUAL NOTED. DR. BRICE CAME TO THE PT'S ROOM AND SPOKE AND CHECKED TO PT. NO SIGN OF DISTRESS NOTED AN WILL MONITOR PT.
[2019-02-09] MEDS: ALBUTEROL SULFATE/IPRATROPIU 3 ML SOL IH SCH ×3 (09:17→19:57)
[2019-02-09 09:18] LABS: CREATININE 0.3 mg/dL (0.7-1.3)
[2019-02-09] MEDS: ACETYLCYSTEINE 10% (100 MG/ML) 100 MG/ML VIAL INH SCH (09:18)
[2019-02-09] MEDS: VANCOMYCIN 1GM/DEXT 5% PREMIX 200 ML IV SCH ×2 (10:18→22:05)
--- NOTE | 2019-02-09 10:20 | NUR ---
PT IS AWAKE AND IV MEDICATION WAS GIVEN VIA PIGGYBACK, PT TOLERATED IT AND WILL MONITOR PT.
--- NOTE | 2019-02-09 11:50 | NUR ---
PT IS AWAKE AND VITAL SIGNS TAKEN, BP IS 123/72, PULSE IS 65, TEMPERATURE IS 97.3, O2 SATURATION IS 98% AND RESPIRATION IS 18/MIN, BLOOD GLUCOSE CHECK DONE AND RESULT IS 115, NO INSULIN COVERAGE NEEDED. NO SIGN OF DISTRESS NOTED AN WILL MONITOR PT.
[2019-02-09 12:00] VITALS: BP 123/72
[2019-02-09] MEDS: THERAHONEY GEL 42.5 GM TP SCH (12:12)
--- NOTE | 2019-02-09 12:16 | NUR ---
PT IS AWAKE AND MEDICATION WAS GIVEN VIA G-TUBE AND EYES, PT TOLERATED IT. A NEW FEEDING BAG WAS STARTED TO PT AND PT TOLERATED IT, NO RESIDUAL NOTED. WILL MONITOR PT.
--- NOTE | 2019-02-09 15:10 | NUR ---
PT WAS CLEANED AND REPOSITIONED NOW. NO SIGN OF DISTRESS NOTED AND WILL MONITOR PT.
[2019-02-09 16:00] VITALS: BP 143/73
--- NOTE | 2019-02-09 17:27 | NUR ---
PT IS AWAKE AND VITAL SIGNS TAKEN, BP IS 143/73, PULSE IS 69, TEMPERATURE IS 98, O2 SATURATION IS 98% AND RESPIRATION IS 18/MIN, BLOOD GLUCOSE CHECK DONE AND RESULT IS 107 AND NO INSULIN COVERAGE NEEDED. NO SIGN OF DISTRESS NOTED AN WILL MONITOR PT.
--- NOTE | 2019-02-09 17:41 | NUR ---
PT REMAINS ON DOCUMENTED VENT SETTINGS. PT SUCTIONED OBTAINED SMALL AMOUNT OF THICK PALE YELLOW SECRETIONS, AIRWAY IS PATENT AND TRACH IS SECURE. PT NOT IN ANY DISTRESS AT THIS TIME. VENT ALARMS REMAIN ON AND FUNCTIONING.
--- NOTE | 2019-02-09 19:20 | NUR ---
RECEIVED BEDSIDE REPORT FROM DAY SHIFT NURSE. PATIENT IS AWAKE AND APHASIC. RESPIRATION EVEN UNLABORED ON TRACH TO VENT. FIO2 35% NO DISTRESS NOTED. SKIN IS WARM AND DRY. SACRAL WOUND NOTED. BEAN DRAINING YELLOW URINE. G-TUBE FEEDING NOTED RUNNING AT 65ML/HADLEY. PATIENT IS ON CONTACT ISOLATION FOR MRSA WOUND. PLAN OF CARE REVIEWED AND UPDATED. ALL SAFETY MEASURES IN PLACE. BED IS IN LOW POSITION. CALL LIGHT WITHIN REACH. WILL CONTINUE TO MONITOR.
--- NOTE | 2019-02-09 19:20 | NUR ---
ENDORSED PT TO QUARRY WORKER NURSE, MYKEL, PT IS AWAKE AND STABLE AT THIS TIME.
[2019-02-09 20:00] VITALS: BP 157/85
--- NOTE | 2019-02-09 20:00 | NUR ---
INITIAL ASSESSMENT DONE. VITALS WERE TAKEN. NO DISTRESS NOTED. OBTAINED 0CC RESIDUAL. WILL CONTINUE TO MONITOR
--- NOTE | 2019-02-09 21:00 | NUR ---
ALL SCHEDULED MEDS WERE GIVEN AND TOLERATED THEM WELL. NO ASE NOTED. WILL CONTINUE TO MONITOR
--- NOTE | 2019-02-09 22:00 | NUR ---
PATIENT SLEEPING, ON TRACH TO VENT, NO DISTRESS NOTED. WILL CONTINUE TO MONITOR.
--- NOTE | 2019-02-09 23:00 | NUR ---
SUCTIONED PATIENT OBTAINED SMALL AMOUNT OF SECRETION. WILL CONTINUE TO MONITOR
[2019-02-10] VITALS: BP 150/76
--- NOTE | 2019-02-10 | NUR ---
VITALS WERE TAKEN. PATIENT CONDITION STABLE. NO DISTRESS NOTED. WILL CONTINUE TO MONITOR.
[2019-02-10] MEDS: HYDRAGUARD CREAM TP SCH ×2 (00:55→13:00)
--- NOTE | 2019-02-10 01:00 | NUR ---
PROVIDED PERICARE AND BEAN CATHETER CARE. ALSO CHANGED PATIENT SACRAL DRESSING.
--- NOTE | 2019-02-10 02:00 | NUR ---
PATIENT SLEEPING, RESPIRATION EVEN UNLABORED ON TRACH TO VENT. NO DISTRESS NOTED. WILL CONTINUE TO MONITOR
--- NOTE | 2019-02-10 03:30 | NUR ---
PATIENT DESATURATING TO BELOW 80 SUCTIONED PATIENT AND CALLED THE RT. WILL CONTINUE TO MONITOR
--- NOTE | 2019-02-10 03:33 | NUR ---
PATIENT STARTED TO DESATURATING DOWN TO 80%. BEGAN TO SUCTION PATIENT AND MUCUS PLUG WAS SUCTIONED FROM THE LOWER LOBES. SECRETIONS WERE THICK AND YELLOWISH. PATIENT SOON AFTER BEGAN TO SATURATE TO 98%. PATIENT STAYED STEADY BETWEEN 96-98%. WILL CONTINUE TO MONITOR PATIENT
[2019-02-10 04:00] VITALS: BP 125/77
--- NOTE | 2019-02-10 04:00 | NUR ---
VITALS WERE TAKEN. PATIENT SATING 100% TRACH TO VENT. NO DISTRESS NOTED. WILL CONTINUE TO MONITOR.
[2019-02-10] MEDS: PIPER/TAZO 3.375GM/D5W PREMIX 50 ML IV SCH ×3 (04:49→20:59)
[2019-02-10] MEDS: BACLOFEN 10 MG TAB GT SCH ×3 (04:49→20:59)
[2019-02-10] MEDS: POLYVINYL ALCOHOL 1.4% OP 15 ML SOL OP SCH ×3 (06:16→18:27)
[2019-02-10] MEDS: BLOOD GLUCOSE MONITORING 1 DEV DEV FS SCH ×4 (06:21→21:11)
--- NOTE | 2019-02-10 07:18 | NUR ---
ENDORSED PATIENT TO DAY SHIFT NURSE FOR CONTINUITY OF CARE. PATIENT IS IN STABLE CONDITION.
--- NOTE | 2019-02-10 07:19 | NUR ---
RECEIVED REPORT FROM PM NURSE AT BEDSIDE. PT SLEEPING, TRAVH OT VENT DEPENDENT. PT HAS TUBE FEEDING, INFUSING AT 65 ML/HR,150 ML WATER FLUSH EVERY 4 HRS. PT IS ON CONTACT PRECAUTION FOR MRSA IN HIS WOUND. PT HAS RT FA 22 G , IVF NS INFUSING AT 50 ML/HR. NO SIGN OF DISTRESS NOTED. WILL CONTINUE TO MONITOR PT.
[2019-02-10] MEDS: ALBUTEROL SULFATE/IPRATROPIU 3 ML SOL IH SCH ×3 (07:48→18:56)
[2019-02-10 08:00] VITALS: BP 123/75
[2019-02-10] MEDS: ASCORBIC ACID 500 MG/5 ML ORASYR GT SCH (08:17)
[2019-02-10] MEDS: DOCUSATE 100 MG/10 ML UDC GT SCH ×2 (08:18→20:59)
[2019-02-10] MEDS: amLODIPine 5 MG TAB GT SCH (08:20)
[2019-02-10] MEDS: FAMOTIDINE 20 MG TAB GT SCH ×2 (08:20→20:59)
[2019-02-10] MEDS: MULTIVITAMIN/MINERALS 15 ML UDBTL GT SCH (08:21)
--- NOTE | 2019-02-10 08:35 | NUR ---
ADMINISTERED MEDS TO PT ORDERED. GT RESIDUAL 50ML AT THIS TIME. GT PATENT, FLUSHED WELL. PROVIDED ORAL CARE. SUCTIONED HIM. TOLERATED WELL. NO SIGN OF DISTRESS NOTED. ALL SAFETY MEASURE IN PLACE. WILL CONTINUE TO MONITOR PT.
[2019-02-10 09:28] LABS: BASOPHILS # (AUTO) 0.1 K/uL (0.00-0.22); BASOPHILS % (AUTO) 0.8 % (0.0-2.0); EOSINOPHILS # (AUTO) 0.3 K/uL (0-0.4); EOSINOPHILS % (AUTO) 2.7 % (0.0-4.0); HEMATOCRIT 29.2 % (36-52); HEMOGLOBIN 9.5 g/dL (12.0-18.0); LYMPHOCYTES % (AUTO) 17.6 % (20.5-51.1); MEAN CORPUSCULAR HEMOGLOBIN 29 pg (27-31); MEAN CORPUSCULAR HGB CONC 33 g/dL (33-37); MEAN CORPUSCULAR VOLUME 88.4 fL (80-94); MONOCYTES # (AUTO) 0.7 K/uL (0.8-1.0); MONOCYTES % (AUTO) 6.2 % (1.7-9.3); NEUTROPHILS # (AUTO) 8.3 K/uL (1.8-7.7); NEUTROPHILS % (AUTO) 72.7 % (42.2-75.2); PLATELET COUNT (AUTO) 361 K/uL (140-450); RED CELL DISTRIBUTION WIDTH 16.3 % (11.6-13.7); WHITE BLOOD COUNT (AUTO) 11.4 K/uL (4.8-10.8)
[2019-02-10 09:43] LABS: ANION GAP 10.7 (8-16); CARBON DIOXIDE 30.4 mmol/L (21-32); CREATININE 0.3 mg/dL (0.7-1.3); POTASSIUM 4.1 mmol/L (3.5-5.1)
[2019-02-10 09:55] LABS: MAGNESIUM 2.1 mg/dL (1.8-2.4); PHOSPHORUS 3.5 mg/dL (2.5-4.9)
--- NOTE | 2019-02-10 11:56 | NUR ---
CHECKED ON PT. LYING ON HIS BED COMFORTABLY. NO DISTRESS NOTED. ALL SAFETY MEASURE IN PLACE. PT REPOSITIONED AND CHANGED THIS AM WITH HELP OF STUDENT NURSE AND SEO EXECUTIVE. TOLERATED WELL. DRESSING INTACT. IVF INFUSING WELL. WILL CONTINUE TO MONITOR PT. BS RECORDED 100.
[2019-02-10 12:00] VITALS: BP 128/70
--- NOTE | 2019-02-10 12:44 | NUR ---
PERFORMED ORAL CARE ON PT. ADMINISTERED MEDS ORDERED. TOLERATED WELL. GT RESIDUAL 5 ML. NO DISTRESSED. WILL CONTINUE TO MONITOR PT.
[2019-02-10] MEDS: THERAHONEY GEL 42.5 GM TP SCH (13:00)
--- NOTE | 2019-02-10 13:36 | NUR ---
PT ASLEEP AT THIS TIME NOT IN ANY DISTRESS. VENT ALARMS REMAIN ON AND FUNCTIONING. TRACH IS SECURE WITH A PATENT AIRWAY.
--- NOTE | 2019-02-10 14:30 | NUR ---
CHECKED ON THE PT. REPOSITIONED AND CHANGED THE DRESSING ORDERED. CHANGED THE DRESSING, NO DRAINAGE SEEN. NO ODOR PRESENT, HAS RED WOUND BED. FEEDING INFUSING WELL. IVF INFUSING NORMAL. ALL SAFETY MEASURE IN PLACE, WILL CONTINUE TO MONITOR PT.
[2019-02-10 16:00] VITALS: BP 115/67
[2019-02-10] MEDS: NACL 0.9% 1,000 ML IV SCH (16:59)
--- NOTE | 2019-02-10 17:27 | NUR ---
PT REMAINS ON DOCUMENTED VENT SETTINGS. PT IS AWAKE NOT IN ANY DISTRESS. TRACH REMAINS SECURE WITH A PATENT AIRWAY. VENT ALARMS REMAIN ON AND FUNCTIONING.
--- NOTE | 2019-02-10 18:28 | NUR ---
CHECKED ON THE PT.SUCTIONED PT. ADMINISTERED ARTIFICIAL TEARS ORDERED. PT LYING COMFORTABLY IN HIS BED. ALL SAFETY MEASURE IN PLACE. WILL CONTINUE TO MONITOR PT.
--- NOTE | 2019-02-10 19:10 | NUR ---
ENDORSED PT TO PM NURSE AT BEDSIDE. PT IN STABLE CONDITION.
--- NOTE | 2019-02-10 19:25 | NUR ---
RECEIVED BEDSIDE REPORT FROM DAY SHIFT NURSE. PATIENT IS AWAKE AND APHASIC. RESPIRATION EVEN UNLABORED ON TRACH TO VENT. FIO2 30% NO DISTRESS NOTED. SKIN IS WARM AND DRY. SACRAL WOUND NOTED. BEAN DRAINING YELLOW URINE. G-TUBE FEEDING NOTED RUNNING AT 65ML/[place]. PATIENT IS ON CONTACT ISOLATION FOR MRSA WOUND. PLAN OF CARE REVIEWED AND UPDATED. ALL SAFETY MEASURES IN PLACE. BED IS IN LOW POSITION. CALL LIGHT WITHIN REACH. WILL CONTINUE TO MONITOR.
[2019-02-10 20:00] VITALS: BP 120/72
--- NOTE | 2019-02-10 20:00 | NUR ---
VITALS WERE TAKEN. PATIENT CONDITION STABLE. OBTAINED 0CC RESIDUAL FROM THE G-TUBE FEEDING. WILL CONTINUE TO MONITOR
--- NOTE | 2019-02-10 21:00 | NUR ---
ALL SCHEDULED MEDS WERE GIVEN PER ORDER. NO ASE NOTED. WILL CONTINUE TO MONITOR
--- NOTE | 2019-02-10 23:00 | NUR ---
PATIENT SLEEPING RESPIRATION EVEN UNLABORED ON TRACH TO VENT. NO DISTRESS NOTED. WILL CONTINUE TO MONITOR
[2019-02-11] VITALS (7 sets, daily range): BP systolic 116–144; BP diastolic 69–77
--- NOTE | 2019-02-11 | NUR ---
VITALS WERE TAKEN. PATIENT CONDITION STABLE. NO DISTRESS NOTED. WILL CONTINUE TO MONITOR
[2019-02-11] MEDS: POLYVINYL ALCOHOL 1.4% OP 15 ML SOL OP SCH ×5 (00:14→23:45)
--- NOTE | 2019-02-11 01:00 | NUR ---
DRESSING CHANGED AND PROVIDED GOOD PERICARE AND BEAN CATHETER.
[2019-02-11] MEDS: HYDRAGUARD CREAM TP SCH ×2 (01:10→13:00)
--- NOTE | 2019-02-11 03:00 | NUR ---
PATIENT SLEEPING COMFORTABLY TRACH TO VENT NO DISTRESS NOTED. WILL CONTINUE TO MONITOR
--- NOTE | 2019-02-11 04:00 | NUR ---
VITALS WERE TAKEN. PATIENT CONDITION STABLE. WILL CONTINUE TO MONITOR
[2019-02-11] MEDS: PIPER/TAZO 3.375GM/D5W PREMIX 50 ML IV SCH ×4 (04:11→23:45)
[2019-02-11] MEDS: BACLOFEN 10 MG TAB GT SCH ×3 (04:11→20:42)
[2019-02-11] MEDS ORDERED: VANCOMYCIN PER PHARMACY MC PRN (04:55)
[2019-02-11] MEDS: HYDROcodone/APAP 5/325 MG 1 TAB TAB PO PRN ×2 (05:11→12:13)
--- NOTE | 2019-02-11 05:11 | NUR ---
PATIENT FLACC 6. ADMINISTERED PAIN MED PER ORDER. WILL CONTINUE TO MONITOR
[2019-02-11] MEDS: BLOOD GLUCOSE MONITORING 1 DEV DEV FS SCH ×4 (06:21→20:47)
--- NOTE | 2019-02-11 07:17 | NUR ---
ENDORSED PATIENT TO DAY SHIFT NURSE FOR CONTINUITY OF CARE. PATIENT CONDITION IS STABLE.
--- NOTE | 2019-02-11 07:18 | NUR ---
RECEIVED REPORT FROM PM NURSE AT BEDSIDE. PT LYING ON THE BED COMFORTABLY. PT IS ON VENT TO TRACH SETTING. PT IS APHASIC. ON TUBE FEEDING. IVF INFUSING WELL. PT IS CONTACT PRECAUTION FOR MRSA IN WOUND.NO SIGN OF DISTRESS NOTED. ALL SAFETY MEASURE IN PLACE. CALL LIGHT WITHIN REACH. WILL CONTINUE TO MONITOR PT.
[2019-02-11 07:29] LABS: BASOPHILS # (AUTO) 0.1 K/uL (0.00-0.22); BASOPHILS % (AUTO) 0.9 % (0.0-2.0); EOSINOPHILS # (AUTO) 0.2 K/uL (0-0.4); EOSINOPHILS % (AUTO) 2.1 % (0.0-4.0); HEMATOCRIT 29.1 % (36-52); HEMOGLOBIN 9.7 g/dL (12.0-18.0); LYMPHOCYTES % (AUTO) 17.4 % (20.5-51.1); MEAN CORPUSCULAR HEMOGLOBIN 29 pg (27-31); MEAN CORPUSCULAR HGB CONC 33 g/dL (33-37); MEAN CORPUSCULAR VOLUME 87.9 fL (80-94); MONOCYTES # (AUTO) 0.7 K/uL (0.8-1.0); MONOCYTES % (AUTO) 6.2 % (1.7-9.3); NEUTROPHILS # (AUTO) 8.6 K/uL (1.8-7.7); NEUTROPHILS % (AUTO) 73.4 % (42.2-75.2); PLATELET COUNT (AUTO) 362 K/uL (140-450); RED BLOOD CELL COUNT(AUTO) 3.31 MIL/uL (4.20-6.10); RED CELL DISTRIBUTION WIDTH 16.3 % (11.6-13.7); WHITE BLOOD COUNT (AUTO) 11.8 K/uL (4.8-10.8)
[2019-02-11] MEDS: ALBUTEROL SULFATE/IPRATROPIU 3 ML SOL IH SCH ×2 (08:02→11:45)
[2019-02-11 08:33] LABS: CARBON DIOXIDE 28.2 mmol/L (21-32); CREATININE 0.3 mg/dL (0.7-1.3); POTASSIUM 4.2 mmol/L (3.5-5.1)
[2019-02-11 08:39] LABS: MAGNESIUM 2.2 mg/dL (1.8-2.4); PHOSPHORUS 3.6 mg/dL (2.5-4.9)
[2019-02-11] MEDS: MULTIVITAMIN/MINERALS 15 ML UDBTL GT SCH (08:47)
[2019-02-11] MEDS: ASCORBIC ACID 500 MG/5 ML ORASYR GT SCH (08:47)
[2019-02-11] MEDS: DOCUSATE 100 MG/10 ML UDC GT SCH ×2 (08:48→20:42)
[2019-02-11] MEDS: amLODIPine 5 MG TAB GT SCH (08:48)
[2019-02-11] MEDS: FAMOTIDINE 20 MG TAB GT SCH ×2 (08:48→20:42)
[2019-02-11] MEDS: VANCOMYCIN 750 MG in DEXTROSE 5% 250 ML IV SCH ×2 (09:41→20:41)
--- NOTE | 2019-02-11 09:46 | NUR ---
ADMINISTERED MEDS TO PT ORDERED. MEDICATED VIA GT, INTACT AND PATENT. GT RESIDUAL 5 ML , FEEDING INFUSING GOOD. PT TOLERATED WELL. ALL SAFETY MEASURE IN PLACE. INFUSED VANCOMYCIN ORDERED. PROVIDED ORAL CARE TO PT. CHANGED AND REPOSITIONED PT WITH HELP OF FLEXOGRAPHIC PRINTING PRESS OPERATOR. WILL CONTINUE TO MONITOR PT.
--- NOTE | 2019-02-11 12:05 | NUR ---
PT SUCTIONED OBTAINED SMALL AMOUNT OF THICK WHITE SECRETIONS, AIRWAY IS PATENT AND TRACH IS SECURE. PT NOT IN ANY DISTRESS, WILL CONTINUE TO MONITOR.
--- NOTE | 2019-02-11 12:31 | NUR ---
ADMINISTERED MEDS TO PT ORDERED. GT PATENT, FLUSHED WITH 30 ML WATER. 5 ML GT RESIDUAL AT THIS TIME. PROVIDED ORAL CARE WITH HELP OF STUDENT NURSE. PT TOLERATED WELL. ALL SAFETY MEASURE IN PLACE. WILL CONTINUE TO MONITOR PT.
[2019-02-11] MEDS: NACL 0.9% 1,000 ML IV SCH (12:59)
[2019-02-11] MEDS: THERAHONEY GEL 42.5 GM TP SCH (13:00)
--- NOTE | 2019-02-11 14:09 | NUR ---
CHANGED PTS DRESSING, REPOSITIONED PT TO HIS RT LATERAL SIDE. PT TOLERATED WELL. WOUND CARE PERFORMED. NO SIGN OF DISTRESS NOTED. ALL SAFETY MEASURE IN PLACE. WILL CONTINUE TO MONITOR PT.
--- NOTE | 2019-02-11 15:46 | NUR ---
PT ASLEEP AT THIS TIME NOT IN ANY DISTRESS. WILL CONTINUE TO MONITOR.
--- NOTE | 2019-02-11 16:30 | NUR ---
CHANGED THE TUBE FEEDING. NO GT RESIDUAL . TUBE FEEDING INTACT AND FLUSHES WELL. ALL SAFETY MEASURE IN PLACE. DREDGE MASTER CHANGED AND REPOSITIONED THE PT. DRESSING IS INTACT. ORAL CARE PROVIDED TO PT.WILL CONTINUE TO MONITOR PT.
--- NOTE | 2019-02-11 17:38 | NUR ---
PT REMAINS ON DOCUMENTED VENT SETTINGS. TRACH IS SECURE WITH A PATENT AIRWAY. VENT ALARMS ON AND FUNCTIONING. PT NOT IN ANY DISTRESS AT THIS TIME. NURSE IS BEDSIDE.
--- NOTE | 2019-02-11 18:08 | NUR ---
CHECKED ON PT. ADMINISTERED MEDS TO PT ORDERED. RT AT THE BEDSIDE. NO SIGN OF DISTRESS NOTED. ALL SAFETY MEASURE IN PLACE. WILL CONTINUE TO MONITOR PT.
--- NOTE | 2019-02-11 19:20 | NUR ---
ENDORSED PT TO PM NURSE AT BEDSIDE. PT IN STABLE CONDITION.
--- NOTE | 2019-02-11 19:25 | NUR ---
RECEIVED FROM AM RN . TOTAL CARE . BEDBOUND/IMMOBILE. PT IS ON VENT TO TRACH SETTING. PT IS APHASIC. ON G-TUBE FEEDING. NO RESIDUAL NOTED. CONTACT PRECAUTION /PER PROTOCOL FOR MRSA IN WOUND.NO RESTLESSNESS NOTED. NEEDS WILL BE ANTICIPATED AND WILL BE MET. HOB UP AT LEAST 30 DEGREES FOR ASPIRATION PRECAUTIONS. NO VOMITING NOTED. DX. UTI AND LLL PNA. ON BREATHING TREATMENTS BY RESPIRATORY THERAPIST AND ON IVF ABT'S. PT. JUST SUCTIONED BY RESPIRATORY THERAPIST.
--- NOTE | 2019-02-11 21:00 | NUR ---
PT. TURNED BY CNAS. PILLOW SUPPORT TO PRESSURE AREAS. NEEDS ANTICIPATED AND WILL BE MET. TOTAL CARE. EYES OPENS . APHASIC. TELEMETRY MONITORING. TRACH TO VENT.
--- NOTE | 2019-02-11 22:00 | NUR ---
IN BED TOTAL CARE. GT IN PLACE AND INFUSING WELL. NO RESTLESSNESS NOTED. HOB UP 25 DEGREES FOR ASPIRATION PRECAUTIONS. ISOLATION PRECAUTIONS OBSERVED PER PROTOCOL. NEEDS WILL BE ANTICIPATED AND WILL BE MET.
--- NOTE | 2019-02-11 23:55 | NUR ---
PT. TURNED TO SIDES BY CNAS Q 2H. TOTAL CARE. SUCTIONED BY ME AT THIS TIME. NO MUCUS SUCTIONED. RESIDUAL 10 ML. HOB UP 30 DEGREES FOR ASPIRATION PRECAUTIONS. PILLOW SUPPORT TO PRESSURE AREAS. BEAN CATHETER DRAINING WELL WITH CLOUDY URINE.TELEMETRY MONITORING.
[2019-02-12] MEDS: HYDRAGUARD CREAM TP SCH ×2 (00:59→12:39)
--- NOTE | 2019-02-12 02:00 | NUR ---
TURNED BY CNAS Q 2H. ALL NEEDS ATTENDED TO AND ANTICIPATED. NO RESTLESSNESS. NO COUGHING AND VOMITING NOTED. HOB UP 25 DEGREES FOR ASPIRATION PRECAUTIONS.
[2019-02-12 04:30] VITALS: BP 119/66
--- NOTE | 2019-02-12 04:57 | NUR ---
AM PERSONAL HYGIENE RENDERED BY CNAS. TURNED TO SIDES Q 2H BY CNAS. PILLOW SUPPORT TO PRESSURE AREAS. HOB UP FOR ASPIRATION PRECAUTIONS RT GT FEEDING. RESPIRATORY THERAPISTS IN HERE TO ATTEND TO PT. SUCTIONED PRN. NO RESTLESSNESS NOTED THIS SHIFT. TRACH TO VENT.
[2019-02-12] MEDS: BLOOD GLUCOSE MONITORING 1 DEV DEV FS SCH ×4 (05:07→20:34)
[2019-02-12] MEDS: BACLOFEN 10 MG TAB GT SCH ×3 (05:07→20:33)
[2019-02-12] MEDS: PIPER/TAZO 3.375GM/D5W PREMIX 50 ML IV SCH ×3 (05:07→17:21)
[2019-02-12] MEDS: POLYVINYL ALCOHOL 1.4% OP 15 ML SOL OP SCH ×3 (05:08→17:21)
[2019-02-12] MEDS: NACL 0.9% 1,000 ML IV SCH (05:14)
--- NOTE | 2019-02-12 05:34 | NUR ---
BLOOD SUGAR CHECK AT THIS TIME IS 114 PER FINGERSTICK. NO INSULIN COVERAGE ADMINISTERED.
[2019-02-12] MEDS: ALBUTEROL SULFATE/IPRATROPIU 3 ML SOL IH SCH ×3 (06:52→19:58)
--- NOTE | 2019-02-12 06:56 | NUR ---
FOUND PT AWAKE RESTING COMFORTABLY. PT ON [facility] VENT SETTINGS OF A/C: RR 10, TIDAL VOLUME 450, PEEP 5, FIO2 30%. ALARMS WERE ON ON & AUDIBLE. VENT CONNECTED TO RED PLUG OUTLET, AMBU BAG AT PTS BEDSIDE.THICK AMOUNT OF SECRETIONS ARE STILL BEING SUCTIONED FROM PT. WILL CONTINUE TO MONITOR PT.
--- NOTE | 2019-02-12 07:24 | NUR ---
RECEIVED BEDSIDE REPORT FROM BROOMMAKING SUPERVISOR RN. PT ON TRACH TO VENT. AAOX2-3 BUT NOT FULLY ABLE TO ASSESS DUE TO PT NONVERBAL. IV TO THE RIGHT FA 22G INFUSING NS AT 100ML/HR. PT HAS SACRAL PRESSURE ULCER, SKIN TEAR TO LEFT FA AND RIGHT LOWER LEG. BEAN CATH IN PLACE. FEEDING FUNNING AT 65ML/HR. PT BED IN LOW POSITION, CALL LIGHT WITHIN REACH. WILL ROUND FREQUENTLY ON PT.
[2019-02-12 07:53] LABS: BASOPHILS # (AUTO) 0.1 K/uL (0.00-0.22); BASOPHILS % (AUTO) 0.9 % (0.0-2.0); EOSINOPHILS # (AUTO) 0.3 K/uL (0-0.4); EOSINOPHILS % (AUTO) 2.5 % (0.0-4.0); HEMATOCRIT 32.2 % (36-52); HEMOGLOBIN 10.5 g/dL (12.0-18.0); LYMPHOCYTES # (AUTO) 1.9 K/uL (2.0-11.5); LYMPHOCYTES % (AUTO) 16.5 % (20.5-51.1); MEAN CORPUSCULAR HEMOGLOBIN 29 pg (27-31); MEAN CORPUSCULAR HGB CONC 33 g/dL (33-37); MEAN CORPUSCULAR VOLUME 87.8 fL (80-94); MONOCYTES # (AUTO) 0.7 K/uL (0.8-1.0); NEUTROPHILS # (AUTO) 8.6 K/uL (1.8-7.7); NEUTROPHILS % (AUTO) 74.1 % (42.2-75.2); PLATELET COUNT (AUTO) 354 K/uL (140-450); RED BLOOD CELL COUNT(AUTO) 3.66 MIL/uL (4.20-6.10); RED CELL DISTRIBUTION WIDTH 16.3 % (11.6-13.7); WHITE BLOOD COUNT (AUTO) 11.6 K/uL (4.8-10.8)
[2019-02-12 08:00] VITALS: BP 122/69
[2019-02-12 08:06] LABS: ANION GAP 9.7 (8-16); CARBON DIOXIDE 30.2 mmol/L (21-32); CREATININE 0.3 mg/dL (0.7-1.3); POTASSIUM 3.9 mmol/L (3.5-5.1)
[2019-02-12 08:15] LABS: MAGNESIUM 2.1 mg/dL (1.8-2.4); PHOSPHORUS 3.5 mg/dL (2.5-4.9)
[2019-02-12] MEDS: VANCOMYCIN 750 MG in DEXTROSE 5% 250 ML IV SCH ×2 (09:24→20:44)
[2019-02-12] MEDS: MULTIVITAMIN/MINERALS 15 ML UDBTL GT SCH (09:24)
[2019-02-12] MEDS: ASCORBIC ACID 500 MG/5 ML ORASYR GT SCH (09:24)
[2019-02-12] MEDS: amLODIPine 5 MG TAB GT SCH (09:25)
[2019-02-12] MEDS: FAMOTIDINE 20 MG TAB GT SCH ×2 (09:25→20:33)
[2019-02-12] MEDS: DOCUSATE 100 MG/10 ML UDC GT SCH ×2 (09:25→20:33)
--- NOTE | 2019-02-12 09:38 | NUR ---
ADMINISTERED MORNING MEDS TO PT. PT TOLERATED THEM WELL. RESIDUAL WAS 5ML. NO SIGNS OD PAIN OR DISTRESS AT THIS TIME. WILL CONTINUE TO ROUND FREQUENTLY ON PT. BED IN LOWEST POSITION, CALL LIGHT WITHIN REACH.
--- NOTE | 2019-02-12 11:47 | NUR ---
PT ASLEEP IN BED. JUST RECEIVED BREATHING TX. PT TOLERATED WELL. NO SIGNS OF DISTRESS, SOB, OR PAIN. WILL CONTINUE TO ROUND FREQUENTLY ON PT. BED IN LOWEST POSITION, CALL LIGHT WITHIN REACH.
[2019-02-12 12:00] VITALS: BP 117/72
[2019-02-12] MEDS: THERAHONEY GEL 42.5 GM TP SCH (12:40)
--- NOTE | 2019-02-12 13:38 | NUR ---
PT RESTING IN BED BUT AWAKE. PT IN NO DISTRESS OR SHOWING SIGNS OF PAIN, SOB. O2 SAT AT 98%. WILL CONTINUE TO ROUND FREQUENTLY ON PT.
--- NOTE | 2019-02-12 15:31 | NUR ---
PT RESTING IN BED. WOUND CARE DONE. PT TOLERATED WELL. PT HAD LARGE BM. CLEANED PROMPTLY. WILL CONTINUE TO ROUND FREQUENTLY ON PT.
[2019-02-12 16:00] VITALS: BP 105/74
--- NOTE | 2019-02-12 17:38 | NUR ---
PT RESTING IN BED. NO SIGNS OF DISTRESS OR PAIN. WILL CONTINUE TO ROUND FREQUENTLY ON PT. O2 SAT AT 96%.
--- NOTE | 2019-02-12 19:39 | NUR ---
ENDORSED PT TO AUTOMATION TEST ENGINEER FOR CONTINUITY OF CARE. PT IN STABLE CONDITION AT THIS TIME.
--- NOTE | 2019-02-12 19:40 | NUR ---
RECIEVED REPORT FROM AM SHIFT . PATIENT ON BED AWAKE BUT APHASIC ,ON TRACH TO VENT .ON GT FEEDING ,WITH BEAN CATH DRAINING YELLOWISH COLOR URINE OUTPUT ,IV SITE INTACT AND PATENT ,IVF INFUSING WELL ,WITH PRESSURE WOUND ON SACRAL AREA DRESSING DRY AND INTACT ,V/S STABLE ,DUE MEDS GIVEN .WILL CONTINUE TO MONITOR
[2019-02-12 20:00] VITALS: BP 106/56
--- NOTE | 2019-02-12 20:06 | NUR ---
RECEIVED TRACH PT WITH A PORTEX 8 TRACH ON VENT. SETTINGS AC/VC 10, VT 500, PEEP 5 AND FIO2 30%. PT NOT AWAKE AT THIS TIME BUT IS NOT IN ANY DISTRESS. VENT IS PLUGGED INTO RED OUTLET. AMBU BAG IS PRESENT NEAR BEDSIDE. TRACH IS SECURE WITH A PATENT AIRWAY. WILL CONTINUE TO MONITOR.
--- NOTE | 2019-02-12 20:44 | NUR ---
VANCOMYCIN TROUGH LEVEL 14.6 DOSE FOR TONIGHT GIVEN PER PROTOCOL.
--- NOTE | 2019-02-12 22:30 | NUR ---
PATIENT HADE MODERATE AMOUNT OF SOFT STOOL . CLEANED AND DRY SACRAL COCCYGEAL DRESSING CHANGED NEEDED PER ORDER.
--- NOTE | 2019-02-13 00:30 | NUR ---
RT CAME FOR O2 SAT KEEP ON FLUCTUATING TO 88% WITH PT NOT ON DISTRESS. CHANGED O2 SAT SENSOR. LATEST O2 SAT AT THIS TIME 99%.
[2019-02-13 00:45] VITALS: BP 130/74
[2019-02-13] MEDS: PIPER/TAZO 3.375GM/D5W PREMIX 50 ML IV SCH ×5 (00:54→23:53)
[2019-02-13] MEDS: POLYVINYL ALCOHOL 1.4% OP 15 ML SOL OP SCH ×5 (00:54→23:55)
[2019-02-13] MEDS: HYDRAGUARD CREAM TP SCH ×2 (01:00→12:14)
--- NOTE | 2019-02-13 01:30 | NUR ---
PT ASLEEP. NO DISTRESS NOTED. O2 SAT 99%. WILL CONTINUE TO MONITOR.
--- NOTE | 2019-02-13 03:00 | NUR ---
MADE ROUNDS. PT IS ASLEEP. NO S/S OF ANY RESPIRATORY DISTRESS NOTED. WILL CONTINUE TO MONITOR.
[2019-02-13 04:00] VITALS: BP 114/78
--- NOTE | 2019-02-13 04:10 | NUR ---
NEW GT FEEDING BAG CHANGED THIS AM PATIENT TOLERATED WELL.
--- NOTE | 2019-02-13 04:15 | NUR ---
RIGHT FOREARM IV ACCESS G20 , INFILTRATED DISCONTINUED .NEW IV ACCESS STARTED RIGHT HAND G 22 CLEAR AND PATENT .
[2019-02-13] MEDS: NACL 0.9% 1,000 ML IV SCH (05:31)
[2019-02-13] MEDS: BACLOFEN 10 MG TAB GT SCH ×3 (05:36→21:13)
--- NOTE | 2019-02-13 06:00 | NUR ---
PT O2 SAT SOMETIMES LOW 87%-88%. HAS BEEN SUCTIONED FROM THE MOUTH . OBTAINED WHITISH SECRETIONS AND FROM TRACH SCANTY CREAMY SECRETIONS . O2 SAT REMAINS 97%-99% AFTER . WILL CONTINUE TO MONITOR.
[2019-02-13] MEDS: BLOOD GLUCOSE MONITORING 1 DEV DEV FS SCH ×4 (06:20→21:00)
--- NOTE | 2019-02-13 06:28 | NUR ---
LATEST BLOOD SUGAR CHECKED RESULT 108. CONTINUE WITH GT FEEDING.
--- NOTE | 2019-02-13 07:25 | NUR ---
ENDORSED PT IN STABLE CONDITION TO AM NURSE.
--- NOTE | 2019-02-13 07:26 | NUR ---
RECEIVED BEDSIDE REPORT FROM ESTELLE FRANKLIN. 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 PATIENT APHASIC AND ON TRACH TO VENT; FIO2 30%, VT 450 ML, RATE 10, FLOW 40 L/MIN, AND PEEP 5. IV ON R HAND 22 G INFUSING NS AT 50, IV ASYMPTOMATIC PATENT AND INTACT. BEAN CATHETER IN PLACE AND SECURE. G TUBE IN PLACE, SWOOSH HEARD. GLUCERNA 1.2 AT 65/HR AND H20 FLUSH 150 Q4H. SACRAL WOUND DRESSING CLEAN DRY AND INTACT. SKIN ALTERATIONS ON LUE AND B/L LOWER EXTREMITIES. FALL RISK PROTOCOL IN PLACE. PATIENT ON WOUND CARE BED AND BED IN LOW POSITION, CALL LIGHT WITHIN REACH, SIDE RAILS X2 UP
[2019-02-13] MEDS: ALBUTEROL SULFATE/IPRATROPIU 3 ML SOL IH SCH ×3 (07:28→19:42)
--- NOTE | 2019-02-13 07:28 | NUR ---
RECEIVED PT ON CARESCAPE ON DOCUMENTED SETTINGS ALARMS ARE ON AND AUDIBLE, PTS TRACH PORTEX 8 IS SECURE, PT IN HF ASLEEP BS RHONCI, SX LG YELLOW, HHN GIVEN I\L WITH 3 MG DUONEB CPT BILATERALLY, VENT PLUGGED INTO RED OUTLET, BMV HOB, CONT POX IN PLACE
[2019-02-13 08:00] VITALS: BP 124/72
[2019-02-13 08:11] LABS: BASOPHILS # (AUTO) 0.2 K/uL (0.00-0.22); BASOPHILS % (AUTO) 1.3 % (0.0-2.0); EOSINOPHILS # (AUTO) 0.3 K/uL (0-0.4); EOSINOPHILS % (AUTO) 1.9 % (0.0-4.0); HEMOGLOBIN 10.8 g/dL (12.0-18.0); LYMPHOCYTES # (AUTO) 2.3 K/uL (2.0-11.5); LYMPHOCYTES % (AUTO) 15.7 % (20.5-51.1); MEAN CORPUSCULAR HEMOGLOBIN 29 pg (27-31); MEAN CORPUSCULAR HGB CONC 33 g/dL (33-37); MEAN CORPUSCULAR VOLUME 88.2 fL (80-94); MONOCYTES # (AUTO) 0.7 K/uL (0.8-1.0); MONOCYTES % (AUTO) 4.7 % (1.7-9.3); NEUTROPHILS % (AUTO) 76.4 % (42.2-75.2); PLATELET COUNT (AUTO) 377 K/uL (140-450); RED BLOOD CELL COUNT(AUTO) 3.74 MIL/uL (4.20-6.10); RED CELL DISTRIBUTION WIDTH 16.8 % (11.6-13.7); WHITE BLOOD COUNT (AUTO) 14.5 K/uL (4.8-10.8)
[2019-02-13 08:25] LABS: MAGNESIUM 2.2 mg/dL (1.8-2.4)
[2019-02-13] MEDS: DOCUSATE 100 MG/10 ML UDC GT SCH ×2 (08:31→21:12)
[2019-02-13] MEDS: ASCORBIC ACID 500 MG/5 ML ORASYR GT SCH (08:31)
[2019-02-13] MEDS: amLODIPine 5 MG TAB GT SCH (08:32)
[2019-02-13] MEDS: FAMOTIDINE 20 MG TAB GT SCH ×2 (08:32→21:13)
[2019-02-13] MEDS: MULTIVITAMIN/MINERALS 15 ML UDBTL GT SCH (08:32)
[2019-02-13] MEDS: VANCOMYCIN 750 MG in DEXTROSE 5% 250 ML IV SCH ×2 (08:33→21:14)
[2019-02-13 08:39] LABS: CARBON DIOXIDE 29.1 mmol/L (21-32); CREATININE 0.3 mg/dL (0.7-1.3)
[2019-02-13 08:45] LABS: PHOSPHORUS 3.4 mg/dL (2.5-4.9)
[2019-02-13 08:51] LABS: ANION GAP 12.3 (8-16); POTASSIUM 4.4 mmol/L (3.5-5.1)
--- NOTE | 2019-02-13 09:06 | NUR ---
ADMINISTERED SCHEDULED MEDS. PATIENT TOLERATED WELL. LESS THAN 5 ML OF GASTRIC RESIDUAL PRESENT, SWOOSH HEARD, FIO2 30%, NO DISTRESS NOTED
--- NOTE | 2019-02-13 10:44 | NUR ---
PATIENT TURNED TO R SIDE LYING POSITION. CLEANED PATIENT SINCE HE HAD SMALL BM AND CLEANSED SACRAL ULCER AND CHANGED DRESSING, PATIENT TOLERATED WELL
--- NOTE | 2019-02-13 11:40 | NUR ---
ADMINISTERED SCHEDULED MEDS. PATIENT TOLERATED WELL
[2019-02-13 12:00] VITALS: BP 117/71
[2019-02-13] MEDS: THERAHONEY GEL 42.5 GM TP SCH (12:15)
--- NOTE | 2019-02-13 14:30 | NUR ---
PATIENT SLEEPING, NO DISTRESS NOTED AT THIS TIME
[2019-02-13 16:00] VITALS: BP 130/75
--- NOTE | 2019-02-13 16:36 | NUR ---
ORAL HYGIENE CARE PERFORMED, SUCTIONED PATIENT, NO DISTRESS NOTED
--- NOTE | 2019-02-13 17:36 | NUR ---
PATIENT TURNED TO R SIDE LYING POSITION, SUCTIONED PRIOR TO REPOSITIONING
--- NOTE | 2019-02-13 19:10 | NUR ---
BEDSIDE REPORT GIVEN TO ESTELLE ZARCO. PATIENT ENDORSED IN STABLE CONDITION
--- NOTE | 2019-02-13 19:11 | NUR ---
RECEIVED BEDSIDE REPORT FROM AM SHIFT NURSE. 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 PATIENT APHASIC AND ON TRACH TO VENT; FIO2 30%, VT 450 ML, RATE 10, FLOW 40 L/MIN, AND PEEP 5. IV ON R HAND 22 G INFUSING NS AT 50, IV ASYMPTOMATIC PATENT AND INTACT. BEAN CATHETER IN PLACE AND SECURE. G TUBE IN PLACE, INTACT AND IN PLACE. GLUCERNA 1.2 AT 65/HR AND H20 FLUSH 150 Q4H. SACRAL WOUND DRESSING CLEAN DRY AND INTACT. SKIN ALTERATIONS ON LUE AND B/L LOWER EXTREMITIES. FALL RISK PROTOCOL IN PLACE. PATIENT ON WOUND CARE BED AND BED IN LOW POSITION, CALL LIGHT WITHIN REACH, SIDE RAILS X2 UP
--- NOTE | 2019-02-13 19:30 | NUR ---
TOOK RESIDUAL LESS THAN 5 CC ON G TUBE , MEDICATED PATIENT, PT TOLERATED WELL. NO SOB, NO S/ SX'S OF PAIN.
[2019-02-13 20:00] VITALS: BP 124/80
--- NOTE | 2019-02-13 20:30 | NUR ---
CHANGED GT TUBE FEEDING AND CONTINUED RATE OF 65 ML/HR; AND WATER FLUSH OF 150 Q 4.
--- NOTE | 2019-02-13 22:06 | NUR ---
PT W/ 1X BM NOTED, CLEANED AND TURNED PT. PT TOLERATED WELL, NO SX'S OF PAIN NOTED.
[2019-02-14] VITALS: BP 141/70
[2019-02-14] MEDS: NACL 0.9% 1,000 ML IV SCH ×3 (01:00→20:59)
[2019-02-14] MEDS: HYDRAGUARD CREAM TP SCH ×2 (01:21→12:14)
[2019-02-14 04:00] VITALS: BP 131/90
--- NOTE | 2019-02-14 04:05 | NUR ---
PT SUCTIONED W/ RT AT BEDSIDE CHECKED ON O2 SAT, CHANGED THE PULSE OXIMETER. PT 02 SAT AT 98%
[2019-02-14] MEDS: PIPER/TAZO 3.375GM/D5W PREMIX 50 ML IV SCH ×4 (06:21→23:26)
[2019-02-14] MEDS: POLYVINYL ALCOHOL 1.4% OP 15 ML SOL OP SCH ×4 (06:21→23:26)
[2019-02-14] MEDS: BACLOFEN 10 MG TAB GT SCH ×3 (06:21→20:46)
[2019-02-14] MEDS: ALBUTEROL SULFATE/IPRATROPIU 3 ML SOL IH SCH ×3 (06:35→19:21)
--- NOTE | 2019-02-14 06:36 | NUR ---
RECEIVED PT ON CARESCAPE ON DOCUMENTED SETTINGS, ALARMS ARE ON AND AUDIBLE, PTS TRACH PORTEX 8 IS SECURE, PT IN HF AWAKE BS RHONCI, HHN GIVEN I\L WITH 3 MG DUONEB BMV HOB, VENT PLUGGED INTO RED OUTLET, CONT POX IN PLACE
[2019-02-14] MEDS: BLOOD GLUCOSE MONITORING 1 DEV DEV FS SCH ×4 (07:04→20:52)
--- NOTE | 2019-02-14 07:05 | NUR ---
PT IN STABLE CONDIOTION AT THIS TIME, ASLEEP BUT AROUSABLE BY TOUCH. NO SOB NO RESPIRATORY DISTRESS
[2019-02-14 07:09] LABS: BASOPHILS # (AUTO) 0.1 K/uL (0.00-0.22); BASOPHILS % (AUTO) 0.9 % (0.0-2.0); EOSINOPHILS # (AUTO) 0.2 K/uL (0-0.4); EOSINOPHILS % (AUTO) 1.9 % (0.0-4.0); HEMATOCRIT 33.5 % (36-52); LYMPHOCYTES % (AUTO) 18.9 % (20.5-51.1); MEAN CORPUSCULAR HEMOGLOBIN 29 pg (27-31); MEAN CORPUSCULAR HGB CONC 33 g/dL (33-37); MEAN CORPUSCULAR VOLUME 88.4 fL (80-94); MONOCYTES # (AUTO) 0.7 K/uL (0.8-1.0); MONOCYTES % (AUTO) 6.6 % (1.7-9.3); NEUTROPHILS # (AUTO) 7.8 K/uL (1.8-7.7); NEUTROPHILS % (AUTO) 71.7 % (42.2-75.2); PLATELET COUNT (AUTO) 335 K/uL (140-450); RED BLOOD CELL COUNT(AUTO) 3.79 MIL/uL (4.20-6.10); RED CELL DISTRIBUTION WIDTH 17.5 % (11.6-13.7); WHITE BLOOD COUNT (AUTO) 10.9 K/uL (4.8-10.8)
[2019-02-14 07:15] LABS: ANION GAP 10.5 (8-16); CARBON DIOXIDE 29.6 mmol/L (21-32); CREATININE 0.3 mg/dL (0.7-1.3); POTASSIUM 4.1 mmol/L (3.5-5.1)
[2019-02-14 07:20] LABS: MAGNESIUM 2.1 mg/dL (1.8-2.4); PHOSPHORUS 3.3 mg/dL (2.5-4.9)
--- NOTE | 2019-02-14 07:30 | NUR ---
BEDSIDE REPORT FROM ESTELLE ZARCO. PATIENT ON TELE MONITOR AND CONTACT PRECAUTIONS FOR MRSA (+) OF SACRAL WOUND. PATIENT BEDBOUND, APHASIC, AND INCONTINENT. PATIENT ON TRACH TO VENT SETTINGS FOLLOWS: FIO2 30%, VT 450 ML, RATE 10, FLOW 40 L/MIN, AND PEEP 5. FALL RISK PROTOCOL IN PLACE. BEAN CATHETER INSERTED ON 02/03/19, SECURE AND CLEAN. PATIENT ON WOUND CARE BED. SCDS IN PLACE. G TUBE FEEDING GLUCERNA 1.2 AT 65 GOAL WITH H20 FLUSH 150 Q4H, SWOOSH HEARD AND GASTRIC RESIDUAL OF LESS THAN 5. BED IN LOW POSITION, CALL LIGHT WITHIN REACH, SIDE RAILS X2 UP
[2019-02-14 08:00] VITALS: BP 135/86
[2019-02-14] MEDS: DOCUSATE 100 MG/10 ML UDC GT SCH ×2 (08:30→20:46)
[2019-02-14] MEDS: ASCORBIC ACID 500 MG/5 ML ORASYR GT SCH (08:30)
[2019-02-14] MEDS: MULTIVITAMIN/MINERALS 15 ML UDBTL GT SCH (08:30)
[2019-02-14] MEDS: amLODIPine 5 MG TAB GT SCH (08:31)
[2019-02-14] MEDS: FAMOTIDINE 20 MG TAB GT SCH ×2 (08:31→20:46)
[2019-02-14] MEDS: VANCOMYCIN 750 MG in DEXTROSE 5% 250 ML IV SCH ×2 (08:31→20:46)
--- NOTE | 2019-02-14 09:01 | NUR ---
ADMINISTERED SCHEDULED MEDS. PATIENT TOLERATED WELL. ON L SIDE LYING POSITION, O2 SAT 90%, NO DISTRESS NOTED
--- NOTE | 2019-02-14 10:40 | NUR ---
WOUND CARE NURSEJUANITA, AT BEDSIDE FOR RE-EVAL OF WOUNDS. WOUNDS CLEANSED AND SACRAL DRESSING CHANGED
--- NOTE | 2019-02-14 10:44 | NUR ---
WOUND CARE RE-EVALUATION NOTE: -TRACH SITE KAT STOMA SKIN DRY AND CLEAN. SKIN INTACT. - GT SITE KAT STOMA WITH SKIN INTACT. -MULTIPLE SKIN ALTERATIONS TO UPPER AND LOWER EXTREMITIES, RESOLVED. 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 RECOMMENDATIONS: -CLEANSE IAD AREA FROM PERINEUM TO SCROTAL AREAS S WITH SOAP AND WATER, PAT DRY, APPLY HYDRAGUARD BID AND PRN IF SOILING AND SIMON -CLEANSE SACRALCOCCYX WITH WOUND CLEANSING SOLUTION AND APPLY THERAHONEY GEL TO WOUND BED, AND Z-GUARD TO KAT-WOUND SKIN, PACK WOUND WITH ADAPTIC DRESSING, COVER WITH DRY DRESSING QD AND PRN IF SOILING -APPLY VERSATEL DRESSING TO BLE LATERAL SIDE Q7 DAYS AND PRN IF SOILING -APPLY HEEL PROTECTORS TO LEFT AND RIGHT HEELS -OFFLOAD BILATERAL HEELS BY PLACING PILLOWS UNDER CALVES UNLESS OTHERWISE CONTRAINDICATED -PRESSURE REDISTRIBUTION SURFACE THERAPY -TURN AND REPOSITION Q2H, OFFLOAD SACRALCOCCYX AND BUTTOCKS BY TURNING RIGHT AND LEFT -CONTINUE TO FOLLOW RD RECOMMENDATIONS
[2019-02-14 12:00] VITALS: BP 121/70
--- NOTE | 2019-02-14 12:10 | NUR ---
Faxed clinicals to [facility] .
[2019-02-14] MEDS: THERAHONEY GEL 42.5 GM TP SCH (12:14)
--- NOTE | 2019-02-14 12:27 | NUR ---
ADMINISTERED SCHEDULED MEDS. PATIENT SLEEPING ON R SIDE LYING POSITION, O2 97%, NO S/SX OF DISTRESS
[2019-02-14] MEDS ORDERED: Z-GUARD PASTE TP SCH (13:00)
--- NOTE | 2019-02-14 13:55 | NUR ---
Faxed clinicals to [facility] . Spoke with Mee from [facility] , pt's call reference # [id number].
--- NOTE | 2019-02-14 13:57 | NUR ---
Spoke with Rachel from [facility] Admission . Pt's room # 124 B.
[2019-02-14 16:00] VITALS: BP 137/95
--- NOTE | 2019-02-14 16:21 | NUR ---
CHANGED G TUBE FEEDING, PATIENT SUCTIONED AND ORAL CARE PERFORMED, O2 SAT OF 98%, NO S/S OF DISTRESS
--- NOTE | 2019-02-14 17:40 | NUR ---
ADMINISTERED SCHEDULED MEDS. PATIENT TOLERATED WELL. L SIDE LYING POSITION, NO S/S OF DISTRESS
--- NOTE | 2019-02-14 19:22 | NUR ---
BEDSIDE REPORT GIVEN TO ESTELLE MCGREGOR. PATIENT ENDORSED IN STABLE CONDITION
--- NOTE | 2019-02-14 19:23 | NUR ---
REPORT RECEIVED FROM AM NURSE AT BEDSIDE. PT IN STABLE CONDITION. AAOX2. INTRODUCED SELF TO PT. BOARD UPDATED. FLACC 0. NO SOB. TRACH TO MECHANICAL VENT. VENT SETTINGS FIO2 30, VT 450, RATE 10, PEEP 5. AFEBRILE. IV SITE R HAND 22G RUNNING NS@50ML/HR PATENT AND INTACT. SKIN WARM, DRY, AND NOT INTACT DUE TO MULTIPLE WOUNDS. SEE WOUND NOTES. PT ON FEEDING GLUCERNA 1.2@65ML/HR. BED LOCKED IN LOW POSITION. CALL DIAZ WITHIN REACH. SAFETY PRECAUTIONS IN PLACE. ALL NEEDS MET AT THIS TIME.
--- NOTE | 2019-02-14 19:48 | NUR ---
RECEIVED PATIENT TRACH PORTEX 8 TO VENT ON SETTINGS AC/VC 450, 10, +5, 30%. VENT CHECK DONE. VENT ALARMS ON AND AUDIBEL VENT PLUGGED INTO RED OUTLET. AMBU BAG AT BEDSIDE. SCHEDULED BREATHING TREATMENT ADMINISTERED. TOLERATED TX WELL, NO ADVERSE SIDE EFFECTS. CPT DONE FOR 10 MINS WITH TREATMENT. PATIENT GRIMACING; CPT STOPPED. AIRWAY SECURE AND PATENT. BREATH SOUNDS COARSE TO CLEAR POST TX, CPT AND SUCTION. SUCTIONED MODERATE AMOUNT OF THICK YELLOW SECRETIONS. NO RESPIR Addendum: 02/14/19 at 1952 by Oksana Weeks RT VENT ALARMS ON AND AUDIBLE. * NO RESPIRATORY DISTRESS NOTED AT THIS TIME. WILL CONTINUE TO MONITOR.
[2019-02-14 20:00] VITALS: BP 131/75
--- NOTE | 2019-02-14 20:46 | NUR ---
BACLOFEN, PEPCID, AND COLACE GIVEN THROUGH GTUBE. VANCO HUNG AND RUNNING. HEPARIN GIVEN SUBQ. PT TOLERATED WELL. BS 108. NO INSULIN COVERAGE NEEDED. RESIDUAL OF 30ML. PT TOLERATING FEEDING WELL.
--- NOTE | 2019-02-14 22:05 | NUR ---
PT LAYING IN BED BUT AROUSABLE. NO S/S OF DISTRESS NOTED. WILL CONTINUE TO MONITOR.
--- NOTE | 2019-02-14 23:26 | NUR ---
PALAK HUNG AND RUNNING. EYE DROPS GIVEN. PT TOLERATED WELL.
[2019-02-15] VITALS: BP 159/81
[2019-02-15] MEDS: HYDRAGUARD CREAM TP SCH (01:06)
--- NOTE | 2019-02-15 02:15 | NUR ---
PT SLEEPING COMFORTABLY BUT AROUSABLE. NO S/S OF DISTRESS NOTED. RESPIRATIONS EVEN, UNLABORED, AND WNL. WILL CONTINUE TO MONITOR.
--- NOTE | 2019-02-15 03:45 | NUR ---
PT SLEEPING BUT AROUSABLE FOR VS. NO S/S OF DISTRESS NOTED. WILL CONTINUE TO MONITOR.
[2019-02-15 04:00] VITALS: BP 122/71
[2019-02-15] MEDS: PIPER/TAZO 3.375GM/D5W PREMIX 50 ML IV SCH ×2 (05:02→11:47)
[2019-02-15] MEDS: POLYVINYL ALCOHOL 1.4% OP 15 ML SOL OP SCH ×2 (05:02→11:47)
[2019-02-15] MEDS: BACLOFEN 10 MG TAB GT SCH (05:02)
--- NOTE | 2019-02-15 05:02 | NUR ---
BACLOFEN CRUSHED AND GIVEN THROUGH GTUBE. PALAK MCFADDEN AND ASA. EYE DROPS APPLIED. BS 109. NO INSULIN COVERAGE NEEDED. Addendum: 02/15/19 at 0536 by Alfred Marie RN RESIDUAL OF 10ML.
[2019-02-15] MEDS: BLOOD GLUCOSE MONITORING 1 DEV DEV FS SCH ×2 (05:22→11:47)
--- NOTE | 2019-02-15 07:15 | NUR ---
PT REPORT RECEIVED FROM ANIME DESIGNER NURSE. PT IS ASLEEP, NO S/S OF ANY ACUTE DISTRESS NOTED. PT IS TRACH TO VENT FI02 30, VT 450, PEEP 5, RR 10. IV SITE IS ON THE R HAND, 22 G, INFUSING NS 50 ML/HR. PT IS RECEIVING TUBE FEEDINGS THROUGH THE G-TUBE GLUCERNA 1.2 65 ML/HR, WITH WATER FLUSHES 150 ML/HR Q4H. BEAN CATHETER INSERTED DRAINING CLEAR YELLOW URINE. FALL PRECAUTIONS AND CONTACT ISOLATION IN PLACE. CALL LIGHT WITHIN REACH, WILL CONTINUE TO MONITOR.
--- NOTE | 2019-02-15 07:18 | NUR ---
REPORT GIVEN TO AM NURSE AT BEDSIDE. PT IN STABLE CONDITION.
[2019-02-15] MEDS: ALBUTEROL SULFATE/IPRATROPIU 3 ML SOL IH SCH ×2 (07:24→13:43)
[2019-02-15 08:00] VITALS: BP 119/73
[2019-02-15] MEDS: ASCORBIC ACID 500 MG/5 ML ORASYR GT SCH (08:58)
[2019-02-15] MEDS: DOCUSATE 100 MG/10 ML UDC GT SCH (08:58)
[2019-02-15] MEDS: amLODIPine 5 MG TAB GT SCH (08:58)
[2019-02-15] MEDS: FAMOTIDINE 20 MG TAB GT SCH (08:59)
[2019-02-15] MEDS: VANCOMYCIN 750 MG in DEXTROSE 5% 250 ML IV SCH (09:00)
[2019-02-15] MEDS: MULTIVITAMIN/MINERALS 15 ML UDBTL GT SCH (09:00)
--- NOTE | 2019-02-15 09:17 | NUR ---
SCHEDULED AM MEDS ADMINISTERED. PT TOLERATED WELL. RESIDUAL IS < 10 ML, PT TOLERATING TUBE FEEDING WELL.
--- NOTE | 2019-02-15 09:34 | NUR ---
NEW FEEDING BOTTLE OF DANN MCFADDEN AND RUNNING.
--- NOTE | 2019-02-15 10:21 | NUR ---
Faxed DC Summary to [facility] .
--- NOTE | 2019-02-15 10:32 | NUR ---
PT CLEANED AND REPOSITIONED, PHOTO OF THE SACRAL WOUND TAKEN FOR DISCHARGE DOCUMENTATION.
--- NOTE | 2019-02-15 11:14 | NUR ---
REPORT GIVEN TO ESTELLE JAIMES, AT [facility] FOR PT'S TRANSFER LATER TODAY.
[2019-02-15 12:00] VITALS: BP 118/73
--- NOTE | 2019-02-15 12:31 | NUR ---
[facility] AUTH # [id number] for pt to go back [place] [facility]
--- NOTE | 2019-02-15 13:46 | NUR ---
Spoke with Maribeth [facility] AUTH # for transportation [id number]. Transportation arranged with [facility] . Pt will be picked up at 1500 and transported to [facility] at [address] [place] [address] [address] Fox. Ortega Gonzalez RN for time of apple picking supervisor.
--- NOTE | 2019-02-15 13:49 | NUR ---
VENT CHECK AND BREATHING TX COMPLETED, PT NOT IN ANY DISTRESS AT THIS TIME. WILL CONTINUE TO MONITOR.
--- NOTE | 2019-02-15 13:59 | NUR ---
Spoke with Teri from [facility] Transportation Dept . Informed Teri I already received the AUTH # for transportation from [facility] EMANUEL Stahl. Pt's transportation is all set up for 1500.
--- NOTE | 2019-02-15 15:00 | NUR ---
PT HAS DC'D TO [facility]. HE WAS PICKED UP BY [facility]. IV SITE WAS DC'D, WRIST BANDS REMOVED. BEAN CATHETER KEPT IN PLACE. PT WAS GIVEN A COPY OF THE DISCHARGE INSTRUCTIONS. PT LEFT WITH ALL HIS BELONGINGS IN STABLE CONDITION.
== END 2019-02-15 15:00 | DRG 720 ==
LOC: MED 21:12 → MTU 02-03 01:45
PROVIDERS: ADMIT General Practice; ATTEND General Practice
PROC: 5A1955Z Respiratory Ventilation, Greater than 96 Consecutive Hours (ICD-10-PCS; principal; 2019-02-03)
DX: A41.9 Sepsis, unspecified organism (principal); J96.21 Acute and chronic respiratory failure with hypoxia; J69.0 Pneumonitis due to inhalation of food and vomit; G93.40 Encephalopathy, unspecified; N17.0 Acute kidney failure with tubular necrosis; E43 Unspecified severe protein-calorie malnutrition; G12.21 Amyotrophic lateral sclerosis; J15.6 Pneumonia due to other Gram-negative bacteria; L89.154 Pressure ulcer of sacral region, stage 4; R53.2 Functional quadriplegia; E11.9 Type 2 diabetes mellitus without complications; N39.0 Urinary tract infection, site not specified; I10 Essential (primary) hypertension; J40 Bronchitis, not specified as acute or chronic; K21.9 Gastro-esophageal reflux disease without esophagitis; R13.10 Dysphagia, unspecified; R47.01 Aphasia; M62.838 Other muscle spasm; E87.1 Hypo-osmolality and hyponatremia; Y95 Nosocomial condition; R31.9 Hematuria, unspecified; D63.8 Anemia in other chronic diseases classified elsewhere; Z93.0 Tracheostomy status; Z99.11 Dependence on respirator [ventilator] status; Z74.01 Bed confinement status; Z68.1 Body mass index [BMI] 19.9 or less, adult; Z79.899 Other long term (current) drug therapy
CPT/HCPCS: 36415; 36600; 71045; 76604; 76770; 80048; 80053; 80202; 81001; 82140; 82150; 82272; 82607; 82728; 82746; 82803; 82948; 83036; 83540; 83605; 83690; 83735; 83880; 84100; 84134; 84436; 84443; 84484; 85025; 85045; 85610; 85730; 87040; 87070; 87081; 87086; 87186; 87205; 89220; 93005; 93925; 93970; 94002; 94003; 94640; 94667; 96365; 96367; 99291; J1644; J1815; J2060; J2185; J2270; J2543; J3370; J7030; J7060; J7620; Q0092